=== PATIENT | male | born 1940 | race Caucasian/White ===

== ENCOUNTER 2019-07-09 12:45 | Inpatient (IN) ==
[2019-07-09 13:31] LABS: BASO# 0.02 X1000 (0.0-0.2); BASO% 0.2 % (0.0-0.8); EOS# 0.66 X1000 (0.0-0.7); EOS% 7.3 % (0.0-10.0); HEMATOCRIT 31.8 % (42.0-52.0); IMM GRAN# 0.02 X1000 (0.0-0.04); IMM GRAN% 0.2 % (0.0-0.5); LYMPH# 1.34 X1000 (1.2-3.4); LYMPH% 14.9 % (20.5-51.1); MCH 29.3 PG (27-31); MCHC 31.4 g/dL (33-37); MCV 93.3 FL (81-99); MONO# 0.88 X1000 (0.11-0.59); MONO% 9.8 % (1.7-9.3); MPV 8.9 FL (7.4-10.4); NEUT% 67.6 % (42.2-75.2); PLT 327 X1000 (130-400); RBC 3.41 XMIL (4.7-6.1); RDW 14.5 % (11.5-14.5); WBC 9.02 X1000 (4.8-10.8)
[2019-07-09] MEDS ORDERED: ZOFRAN IM ONE (13:53)
[2019-07-09] MEDS ORDERED: MORPHINE IV ONE (13:53)
[2019-07-09] MEDS ORDERED: NS 1,000 ML IV ONE (13:54)
[2019-07-09 14:00] LABS: ALB/GLOB RATIO 1.1; ALBUMIN 3.8 g/dL (3.5-5.0); CALCIUM 9.4 mg/dL (8.8-10.2); CREATININE 1.3 mg/dL (0.7-1.2); POTASSIUM 5.4 mmol/L (3.5-5.1); TOTAL BILIRUBIN 0.35 mg/dL (0.20-1.00); TOTAL PROTEIN 7.2 g/dL (6.3-8.3)
[2019-07-09 14:02] LABS: BILIRUBIN URINE NEGATIVE (NEGATIVE); BLOOD URINE NEGATIVE (NEGATIVE); COLOR YELLOW; GLUCOSE URINE 1000 mg/dL (NEGATIVE); KETONE URINE NEGATIVE (NEGATIVE); LEUKOCYTES URINE NEGATIVE (NEGATIVE); NITRITE URINE NEGATIVE (NEGATIVE); PH URINE 5.5; PROTEIN URINE NEGATIVE (NEGATIVE); SP GRAVITY URINE 1.012; TURBIDITY URINE CLEAR (CLEAR); URINE SOURCE CLEAN CATCH; UROBILINOGEN URINE NORMAL (NORMAL)
[2019-07-09 14:03] LABS: UR EPITHELIAL CELLS <10 /HPF (<10); URINE BACTERIA NEGATIVE /HPF; URINE RBC <10 /HPF (<10); URINE WBC <10 /HPF (<10)
--- NOTE | 2019-07-09 14:32 | Diag Imaging Result Doc PS360 ---
EXAM: CT ABDOMEN/PELVIS W/O CONTRAST 07/09/2019 HISTORY: Abdominal pain TECHNIQUE: This exam was performed using automated exposure control, adjustment of mA or kV according to patient size, and/or use of iterative reconstruction technique. COMMENT: The current examination is compared to 01/31/2012. There is a calcified granuloma in the right lower lobe. There are platelike atelectatic changes present in the lung bases particularly the left lower lobe. This was not present previously. There is calcification and thickening in the tail of the pancreas which was not present at the time the previous study. There was pancreatitis on the previous examination. There is thickening of the Gerota's fascia anteriorly on the left. There are some mesenteric nodules present in the left upper quadrant which were not previously present. The enlarged portion of the pancreatic tail measures 3.3 cm in transverse dimension. The remainder the pancreas is unremarkable in appearance. There is no evidence of nephrolithiasis or hydronephrosis. There has been cholecystectomy. There are some granulomata present in the liver. No gross hepatic abnormalities are otherwise demonstrated on this noncontrast study. There is some apparent mucosal thickening in the splenic flexure of the colon with stranding in the fat surrounding the colon. This may be related to the same process seen in the pancreatic tail and anterior pararenal space. There is an apparent fluid collection posterior to the body of the stomach. This is 4.4 cm in anterior posterior dimension on image 46 and extends at least 8 cm along the lesser curvature of the stomach. There are number of nodes present in the hilus of the spleen in addition to the splenule which was previously present. The small bowel is not distended. There is no evidence of free fluid. The urinary bladder is not distended. There is diverticulosis in the sigmoid colon without evidence of diverticulitis. There is no evidence of appendicitis. There are spondylotic changes in the lumbar spine similar in appearance to the previous study. IMPRESSION: 1. Mass in the tail of the pancreas. The possibility of recurrent chronic pancreatitis cannot be excluded, however the likelihood of malignancy is suggested by the peritoneal implants and adenopathy. 2. Primary or secondary involvement of the splenic flexure of the colon. 3. Pseudocyst adjacent to the lesser curvature of the body of the stomach. Electronically signed by Del Tucker 07/09/2019 2:30 PM
--- NOTE | 2019-07-09 14:52 | PROVIDER DOCUMENTATION ---
HPI-Abdominal Pain/GI Problem - General Chief Complaint: Abdominal Pain Stated Complaint: ABD PAIN Time Seen by Provider: 07/09/19 13:15 Source: patient Allergies/Adverse Reactions: Patient Allergies Allergy/AdvReac Type Severity Reaction Status Date / Time No Known Allergies Allergy Verified 07/09/19 12:59 Home Medications: Home Medication List Medication Instructions Recorded Confirmed Last Taken Type Carvedilol 25 mg PO DAILY 07/09/19 07/09/19 Unknown History Empagliflozin [Jardiance] 10 mg PO DAILY 07/09/19 07/09/19 Unknown History Fenofibrate,Micronized 134 mg PO DAILY 07/09/19 07/09/19 Unknown History [Fenofibrate] Glimepiride 1 mg PO DAILY 07/09/19 07/09/19 Unknown History Indapamide 2.5 mg PO DAILY 07/09/19 07/09/19 Unknown History Liraglutide [Victoza] 1.8 mg PO DAILY 07/09/19 07/09/19 Unknown History Losartan Potassium 100 mg PO DAILY 07/09/19 07/09/19 Unknown History Metformin E.r. [Glucophage Xr] 500 mg PO DAILY 07/09/19 07/09/19 Unknown History PRAVAstatin [Pravachol] 40 mg PO HS 07/09/19 07/09/19 Unknown History Pioglitazone [Actos] 15 mg PO DAILY 07/09/19 07/09/19 Unknown History - History of Present Illness-ABD Nature of Presenting Problems: 79 yo M with PMH of HTN, DM, HLD, Diverticulosis, presents c/o 2 days of worsening generalized abdominal pain, patient was seen at his PCP's office on Tuesday and treated for GERD/gastritis w/ PPI. Abdominal Pain Onset Location: reports: LLQ, epigastric, periumbilical Pain Radiation: reports: no radiation Quality of Pain: reports: cramping, dull Severity in ED: reports: moderate Onset/Duration: reports: gradual Timing: reports: still present Activities at Onset: reports: light activity Exposure to sick contacts?: No Modifying Factors: improves with: nothing Associated Symptoms: reports: diarrhea (Watery), nausea. denies: vomiting Last BM: other (3 diarrheal episodes today) Dark Stools Present?: reports: none noticed Rectal Bleeding: reports: none # of Diarrhea Episodes: 3 Rectal Pain: reports: none # of Vomiting Episodes: 0 Similar Symptoms Previously?: Yes (H/o diverticulosis w/ diverticulitis ) Review of Systems - Adult - REVIEW OF SYSTEMS - ADULT Constitutional: reports: no symptoms reported. denies: chills, fever Eyes: reports: no symptoms reported Ears, Nose, Mouth & Throat: reports: no symptoms reported Cardiovascular: reports: no symptoms reported Respiratory: reports: no symptoms reported Gastrointestinal: reports: see HPI, abdominal pain, diarrhea, nausea. denies: v omiting Genitourinary: reports: no symptoms reported Musculoskeletal: reports: no symptoms reported Integumentary: reports: no symptoms reported Neurological: reports: no symptoms reported Psychiatric: reports: no symptoms reported Endocrine: reports: no symptoms reported Hematologic/Lymphatic: reports: no symptoms reported Allergic/Immunologic: reports: no symptoms reported All Other Systems: Reviewed and Negative Past History - Adult - PAST MEDICAL HISTORY-ADULT Review of Records: reports: Old Records Reviewed, Nursing Assessment Review, Medications Reviewed, Social history reviewed & non-contributory. Cardiovascular: reports: HTN, hyperlipidemia Diabetes Type: Type 2 - PRIOR SURGERIES/PROCEDURES Surgical/Procedure History: reports: cholecystectomy - FAMILY HISTORY Family History: reviewed, not pertinent - SOCIAL HISTORY Smoking: denies Substance Use: none/never Alcohol Use Frequency: never Living Situation: family Physical Exam-General - PHYSICAL EXAM-ADULT Initial Vital Signs Reviewed: Yes (Repeat RR 15 rpm, BP 122/80) - CONSTITUTIONAL General Appearance: appears well, alert, no apparent distress - EYES Eyes: PERRL/EOMI, pink conjunctivae - HEAD, EARS, NOSE, MOUTH & THROAT HENMT: normocephalic/atraumatic, normal ENT inspection - NECK Neck: non-tender, full range of motion, supple - RESPIRATORY Respiratory: chest non-tender, lungs clear, normal breath sounds - CARDIOVASCULAR Cardiovascular: normal peripheral pulses, regular rate, rhythm, no edema - GASTROINTESTINAL (ABDOMEN) Abdominal Exam: normal bowel sounds, soft, no organomegaly, no pulsatile mass, guarding, tenderness (Periumbilical, LUQ and LLQ). negative: distended, rigid, rebound, hernia - LYMPHATIC Lymphatic: no adenopathy - MUSCULOSKELETAL Back Exam: normal inspection, no CVA tenderness Extremity: non-tender - SKIN Integumentary: normal color - NEUROLOGIC Neurologic: grossly normal - PSYCHIATRIC Psych/Mental Status: normal mood/affect Progress - PLAN OF CARE/RESULTS Progress/Plan/Lab Results: Vital Signs - 8 hr 07/09/19 12:52 Temperature 98.1 F Pulse Rate 84 Respiratory Rate 18 Blood Pressure 120/51 O2 Sat by Pulse Oximetry 99 Laboratory Results - last 24 hr 07/09/19 07/09/19 07/09/19 13:11 13:11 13:11 WBC 9.02 RBC 3.41 L Hgb 10.0 L Hct 31.8 L MCV 93.3 MCH 29.3 MCHC 31.4 L RDW Std Deviation 14.5 Plt Count 327 MPV 8.9 Immature Gran % (Auto) 0.2 Neut % (Auto) 67.6 Lymph % (Auto) 14.9 L [place] % (Auto) 9.8 H Eos % (Auto) 7.3 Baso % (Auto) 0.2 Immature Gran # (Auto) 0.02 Neut # (Auto) 6.10 Lymph # (Auto) 1.34 [place] # (Auto) 0.88 H Eos # (Auto) 0.66 Baso # (Auto) 0.02 Sodium 133 L Potassium 5.4 H Chloride 98 Carbon Dioxide 22 L Anion Gap 13 BUN 34 H Creatinine 1.3 H Estimated GFR/1.73 m2 53 BUN/Creatinine Ratio 26 Glucose 90 Calculated Osmolality 274 Calcium 9.4 Total Bilirubin 0.35 AST 22 ALT 15 Alkaline Phosphatase 57 Total Protein 7.2 Albumin 3.8 Globulin 3.4 Albumin/Globulin Ratio 1.1 Amylase 195 Lipase 430 H Urine Source Urine Color Urine Turbidity Urine pH Ur Specific [place] Urine Protein Ur Glucose (Stick) Ur Ketones (Stick) Urine Blood Urine Nitrite Urine Bilirubin Urobilinogen Dipstick Urine Leukocytes Urine WBC (Auto) Urine RBC (Auto) U Epithel Cells (Auto) Urine Bacteria (Auto) 07/09/19 13:49 WBC RBC Hgb Hct MCV MCH MCHC RDW Std Deviation Plt Count MPV Immature Gran % (Auto) Neut % (Auto) Lymph % (Auto) [place] % (Auto) Eos % (Auto) Baso % (Auto) Immature Gran # (Auto) Neut # (Auto) Lymph # (Auto) [place] # (Auto) Eos # (Auto) Baso # (Auto) Sodium Potassium Chloride Carbon Dioxide Anion Gap BUN Creatinine Estimated GFR/1.73 m2 BUN/Creatinine Ratio Glucose Calculated Osmolality Calcium Total Bilirubin AST ALT Alkaline Phosphatase Total Protein Albumin Globulin Albumin/Globulin Ratio Amylase Lipase Urine Source CLEAN CATCH Urine Color YELLOW Urine Turbidity CLEAR Urine pH 5.5 Ur Specific [place] 1.012 Urine Protein NEGATIVE Ur Glucose (Stick) 1000 A Ur Ketones (Stick) NEGATIVE Urine Blood NEGATIVE Urine Nitrite NEGATIVE Urine Bilirubin NEGATIVE Urobilinogen Dipstick NORMAL Urine Leukocytes NEGATIVE Urine WBC (Auto) <10 Urine RBC (Auto) <10 U Epithel Cells (Auto) <10 Urine Bacteria (Auto) NEGATIVE Orders Category Date Time Status Saline Loc DIRECTED Care 07/09/19 12:57 Active NPO Diet 07/09/19 12:[address] ABDOMEN/PELVIS W/O CONTRAST [CT] Stat Exams 07/09/19 13:53 Completed AMYLASE [CHEM] Stat Lab 07/09/19 13:11 Completed CBC WITH ELECTRONIC DIFF [HEME] Stat Lab 07/09/19 13:11 Completed COMPREHENSIVE METABOLIC PANEL [CHEM] Stat Lab 07/09/19 13:11 Completed LIPASE [CHEM] Stat Lab 07/09/19 13:11 Completed URINALYSIS W/POSS RFLX CULT [URINALYSIS] Stat Lab 07/09/19 13:49 Completed 0.9% Sodium Chloride Inj [Ns] 1,000 ml Med 07/09/19 13:54 Active IV 999 mls/hr Morphine Med 07/09/19 13:53 Discontinued 4 mg IV NOW ONE Ondansetron [Zofran] Med 07/09/19 13:53 Discontinued 4 mg IM NOW ONE Result Diagrams: 07/09/19 13:11 07/09/19 13:11 - CT/MRI 1 CT Study: Abdomen, Pelvis Impression: See EMR Report (EXAM: CT ABDOMEN/PELVIS W/O CONTRAST 07/09/2019 HISTORY: Abdominal pain TECHNIQUE: This exam was performed using automated exposure control, adjustment of mA or kV according to patient size, and/or use of iterative reconstruction technique. COMMENT: The current examination is compared to 01/31/2012. There is a calcified granuloma in the right lower lobe. There are platelike atelectatic changes present in the lung bases particularly the left lower lobe. This was not present previously. There is calcification and thickening in the tail of the pancreas which was not present at the time the previous study. There was pancreatitis on the previous examination. There is thickening of the Gerota's fascia anteriorly on the left. There are some mesenteric nodules present in the left upper quadrant which were not previously present. The enlarged portion of the pancreatic tail measures 3.3 cm in transverse dimension. The remainder the pancreas is unremarkable in appearance. There is no evidence of nephrolithiasis or hydronephrosis. There has been cholecystectomy. There are some granulomata present in the liver. No gross hepatic abnormalities are otherwise demonstrated on this noncontrast study. There is some apparent mucosal thickening in the splenic flexure of the colon with stranding in the fat surrounding the colon. This may be related to the same process seen in the pancreatic tail and anterior pararenal space. There is an apparent fluid collection posterior to the body of the stomach. This is 4.4 cm in anterior posterior dimension on image 46 and extends at least 8 cm along the lesser curvature of the stomach. There are number of nodes present in the hilus of the spleen in addition to the splenule which was previously present. The small bowel is not distended. There is no evidence of free fluid. The urinary bladder is not distended. There is diverticulosis in the sigmoid colon without evidence of diverticulitis. There is no evidence of appendicitis. There are spondylotic changes in the lumbar spine similar in appearance to the previous study. IMPRESSION: 1. Mass in the tail of the pancreas. The possibility of recurrent chronic pancreatitis cannot be excluded, however the likelihood of malignancy is suggested by the peritoneal implants and adenopathy. 2. Primary or secondary involvement of the splenic flexure of the colon. 3. Pseudocyst adjacent to the lesser curvature of the body of the stomach. Electronically signed by Del Tucker 07/09/2019 2:30 PM) - CONSULTS/PCP/HOSPITALIST Notification #1 *Consult/PCP/Hospitalist*: MARY ANNE Spears) Time Discussed: 15:26 Reason/Comments: Admission Consult Disposition: Admit (Inpatient management of chronic recurrent pancreatitis, w/up pancreatic mass/pseudocyst/possible GI malignancy) Departure - Departure Date of Disposition Decision: 07/09/19 Time of Disposition Decision: 15:11 DIAGNOSIS: Pancreatic mass, Pseudocyst of pancreas, Mesenteric lymphadenopathy, Normocytic anemia, Hyperkalemia Pancreatitis Qualifiers: Chronicity: chronic Pancreatitis type: unspecified pancreatitis type Qualified Code(s): K86.1 - Other chronic pancreatitis Kidney failure Qualifiers: Renal failure chronicity: unspecified chronicity Qualified Code(s): N19 - Unspecified kidney failure Disposition: ADMITTED INPATIENT 09 Certified Medical Emergency: Emergent Condition: Stable - Critical Care Note This patient required my direct & personal management of CC.: No Attestation - Physician/ SHIRA Attestation Patient care was provided by Advanced Practice Provider:: No The physician spent face to face time with patient:: Yes Advanced Practice Provider documentation review:: Supervising physician onsite and consulted in the evaluation and care of this patient. The physician did have a face to face encounter with the patient.
[2019-07-09] MEDS ORDERED: ZOFRAN IV PRN (16:34)
--- NOTE | 2019-07-09 18:10 | HISTORY AND PHYSICAL ---
CHIEF COMPLAINT: Abdominal pain. HISTORY OF PRESENT ILLNESS: This is a very pleasant 79-year-old gentleman with a history of hypertension, diabetes mellitus, and diverticulosis. He presents to the emergency room complaining of 4 to 5 days of increasing generalized abdominal pain. He describes this as a cramping dull type pain that is primarily in the left lower quadrant and suprapubic area, although he has had some umbilical to epigastric pain with no alleviating or exacerbating factors. He has developed diarrhea today. He denies any known sick contacts or any recent travel. PAST MEDICAL HISTORY: 1. Diabetes mellitus. 2. Hyperlipidemia. 3. Hypertension. 4. Diverticulosis. PAST SURGICAL HISTORY: Cholecystectomy. SOCIAL HISTORY: He is , lives with his . He denies any alcohol, tobacco, or illicit drug use. FAMILY HISTORY: Positive for hypertension and diabetes mellitus and high cholesterol. ALLERGIES: No known drug allergies. HOME MEDICATIONS: A list will be obtained by the nursing staff, and once verified, we will review and restart as appropriate. REVIEW OF SYSTEMS: Discussed with patient with pertinent positives stated in the HPI. He denied any syncope or dizziness, any chest pain or palpitations, any shortness of breath, cough, fever, chills, night sweats, black or bloody vomitus or stools, any hematuria, dysuria, frequency, urgency. PHYSICAL EXAMINATION: GENERAL: This is an 79-year-old gentleman, who is lying on the stretcher in the emergency room, in no distress. VITAL SIGNS: Blood pressure is 150/60 with a heart rate of 73, respirations are 18, temperature is 98.1 degrees oral with room air saturations 98% to 99%. EYES: Pupils equal, round, react to light. EOMs are intact. Sclerae anicteric. HEENT: Head is normocephalic, atraumatic. Mucous membranes are moist. NECK: Supple with trachea midline. CARDIOVASCULAR: Regular rate and rhythm. S1 and S2 appreciated. He has no lower extremity edema. Calves are nontender bilateral with peripheral pulses palpable x4 extremities. PULMONARY: Breath sounds are clear with no increased work of breathing noted. Chest rises and falls symmetric with respiration. Chest wall is nontender to palpation. GASTROINTESTINAL: Abdomen is soft, nondistended. Tender to suprapubic, left lower quadrant, and epigastric areas with bowel sounds in all 4 quadrants. NEUROLOGIC: He is alert and oriented x3. SKIN: Warm and dry. DIAGNOSTIC STUDIES: WBC is 9 with hemoglobin 10, hematocrit 31.8, platelets of 327,000. Sodium 133, potassium 5.4, BUN 34, creatinine 1.3 with a glucose of 90. Lipase is 430. Urinalysis is essentially negative with the exception of glucose of 1000. CT of the abdomen and pelvis reveals mass in the tail of the pancreas with the possibility that recurrent chronic pancreatitis cannot be excluded. However, the likelihood of malignancy is suggested by the peritoneal implants and adenopathy, primary or secondary involvement of the splenic flexure of the colon with pseudocyst adjacent to the lesser curvature of the body of the stomach. ASSESSMENT AND PLAN: 1. Pancreatitis. 2. Pancreatic mass. 3. Pseudocyst of the pancreas. 4. Mesenteric lymphadenopathy. 5. Diabetes mellitus. 6. Hypertension. 7. Hyperlipidemia. 8. Anemia. 9. Hypokalemia. 10. Acute kidney injury. 11. Diarrhea. 12. Abdominal pain. PLAN: The patient will be admitted to the hospital. He will be placed on telemetry. We will continue with IV hydration. n.p.o. stool studies. Check a CEA and CA19-9 CBC, CMP, and lipase in the morning. stat pro-time with INR, PTT. Patterned blood glucose with sliding scale insulin. DVT prophylaxis, we will use SCDs and GI prophylaxis, Protonix. Consult Dr Guidry Plan was discussed with Dr. Patton. Further treatments pending hospital course. Dictated by MARY ANNE Singh for Jose Luis Cifuentes MD Addendum: Patient seen and examined by myself. Agree with MARY ANNE note. It reflects my assessment and plan. Patient is being admitted to hospital for work up for pancreatic mass. Will consult GI and Oncology and will check CT of thorax for staging. Will monitor patient closely. Will provide IV fluids and pain meds. cc: MARY ANNE Singh MD [facility]
[2019-07-09] MEDS: NS 1,000 ML IV SCH (18:54)
[2019-07-09] MEDS: SODIUM CHLORIDE 0.9% INJ SCH (18:54)
[2019-07-09] MEDS: PROTONIX IV SCH (18:54)
[2019-07-09 18:59] LABS: INR 1.37; PROTIME 17.1 Seconds (11.0-16.0)
[2019-07-09 19:00] LABS: PTT 38.5 Seconds (22.3-41.8)
[2019-07-10] MEDS: HUMALOG SUBQ SCH ×5 (05:00→20:44)
[2019-07-10] MEDS ORDERED: D50W SYRINGE IV PRN (05:11)
[2019-07-10 05:16] LABS: BASO# 0.02 X1000 (0.0-0.2); BASO% 0.3 % (0.0-0.8); EOS# 0.46 X1000 (0.0-0.7); EOS% 5.9 % (0.0-10.0); HEMATOCRIT 28.5 % (42.0-52.0); HEMOGLOBIN 8.8 g/dL (14.0-18.0); LYMPH# 0.98 X1000 (1.2-3.4); LYMPH% 12.5 % (20.5-51.1); MCH 28.8 PG (27-31); MCHC 30.9 g/dL (33-37); MCV 93.1 FL (81-99); MONO# 0.98 X1000 (0.11-0.59); MONO% 12.5 % (1.7-9.3); MPV 8.6 FL (7.4-10.4); NEUT# 5.41 X1000 (1.4-6.5); NEUT% 68.8 % (42.2-75.2); PLT 315 X1000 (130-400); RBC 3.06 XMIL (4.7-6.1); RDW 14.6 % (11.5-14.5); WBC 7.85 X1000 (4.8-10.8)
[2019-07-10 05:33] LABS: ALBUMIN 3.3 g/dL (3.5-5.0); CALCIUM 8.7 mg/dL (8.8-10.2); CREATININE 1.2 mg/dL (0.7-1.2); POTASSIUM 4.8 mmol/L (3.5-5.1); TOTAL BILIRUBIN 0.36 mg/dL (0.20-1.00); TOTAL PROTEIN 6.6 g/dL (6.3-8.3)
[2019-07-10] MEDS: NS 1,000 ML IV SCH (06:28)
[2019-07-10] MEDS: MORPHINE IV PRN ×2 (08:46→16:28)
[2019-07-10] MEDS: COREG PO SCH (11:43)
--- NOTE | 2019-07-10 12:37 | PROGRESS NOTE ---
DATE: 07/10/2019 SUBJECTIVE: The patient has no major complaints. He seems to be doing better, like he is hungry, pain is better. Of course, he has been n.p.o. OBJECTIVE DATA: Vital signs: Blood pressure is 130/50, heart rate of 86, respiratory rate of 18, temperature 98.9 degrees, saturating 97% on room air. Cardiovascular: Regular rate and rhythm. Pulmonary: Bilateral breath sounds. Clear to auscultation. GI: Soft, nontender, nondistended. Bowel sounds are positive. LABORATORY DATA: White count 7, hemoglobin and hematocrit 8 and 28, platelets 315,000. Basic was normal. Creatinine of 1.2. Lipase is down to 187. PROBLEM LIST: 1. Acute pancreatitis with unclear etiology, and there is a questionable mass versus pseudocyst versus splenule. We are going to continue to monitor. I have discussed the case with Dr. Hussein, who states that it may be a little too early to pursue biopsy, and that we would monitor him for a couple days, and then re-image, and then decide about doing a biopsy at that time, if the mass has not changed or if the inflammation has down a bit. I will relay the information to Dr. Guidry. I do think he needs a Gastroenterology consultation, but we do not have that available. I am going to try to see if Dr. Whitaker will see him because he sees the patient's and daughter, just to get an opinion. 2. Type 2 diabetes. Will monitor blood sugars, and follow closely. 3. Hypertension. Will continue to monitor. 4. Acute kidney injury. Continue hydration. Follow. 5. Disposition. Pending clinical status, but he is going to be here another couple of days. cc: Victor Hugo Solano MD
[2019-07-10 13:19] LABS: AGAP 11; ALB/GLOB RATIO 0.9; ALBUMIN 3.2 g/dL (3.5-5.0); ALKALINE PHOSPHATASE 45 U/L (32-122); BUN 20 mg/dL (8-22); CALCIUM 8.6 mg/dL (8.8-10.2); CHLORIDE 104 mmol/L (98-107); COSMO 279; CREATININE 1.1 mg/dL (0.7-1.2); ESTIMATED GFR > 60; GLUCOSE 148 mg/dL (70-104); GOT 23 U/L (10-34); GPT 12 U/L (10-44); SODIUM 137 mmol/L (136-145); TCO2 22 mmol/L (25-35); TOTAL BILIRUBIN 0.36 mg/dL (0.20-1.00); TOTAL PROTEIN 6.7 g/dL (6.3-8.3)
[2019-07-10] MEDS: LR 1,000 ML IV SCH (16:25)
[2019-07-10] MEDS: TYLENOL PO PRN (19:08)
[2019-07-10] MEDS: PROTONIX IV SCH (19:09)
[2019-07-10] MEDS: ZOSYN 3.375 GM in NS 50 ML IV SCH (20:45)
--- NOTE | 2019-07-11 00:42 | HEMO/ONC CONSULTATION ---
DATE: 07/10/2019 REQUESTING PHYSICIAN: Dr. Solano. REASON FOR CONSULTATION: Pancreatic tail mass with peritoneal/omental metastases. CHIEF COMPLAINT/HISTORY OF PRESENT ILLNESS: Patient is an 79-year-old male who presented to the ER bed abdominal pain mainly in the lower abdomen. He reports he had similar pain when he was diagnosed with pancreatitis in 2011. A CT scan was performed which revealed findings concerning for a mass in the tail of the pancreas, chronic pancreatitis, peritoneal implants and adenopathy with concern for a primary or secondary involvement of the splenic flexure of the colon. I have been requested to consult on him. I take care of his daughter in the clinic as well. PAST MEDICAL HISTORY: Diabetes, hypertension, hyperlipidemia, diverticulosis. PAST SURGICAL HISTORY: Cholecystectomy. SOCIAL HISTORY: Patient is and lives with his . He denies smoking, alcohol, or substance abuse. FAMILY HISTORY: Positive for diabetes and hypertension. ALLERGIES: No known drug allergies. CURRENT MEDICATIONS: Coreg, insulin, Protonix, Zosyn. REVIEW OF SYSTEMS: Patient denies blood per rectum or melena. He denies anorexia or weight loss. All other review of systems are negative. PHYSICAL EXAMINATION: General: Patient is in no acute distress. Vital Signs: Temperature 99.4 degrees, pulse 91, blood pressure 141/51. HEENT: EOMI. PERRLA. Anicteric. Mucous membranes are moist. Neck: Supple without JVD, thyromegaly, or nodules. Lymphatic: Node survey is negative. Cardiac: Regular rate and rhythm. Normal S1, S2. Chest: Clear to auscultation. Abdomen: Protuberant, soft, nontender, without hepatosplenomegaly. No masses. Extremities: No cyanosis, clubbing, or edema. Neurological: Alert and oriented x3. No focal motor deficits. LABORATORY DATA: White count 7.8, hemoglobin 8.8, hematocrit 28, MCV 93, platelets 315,000. BUN 20, creatinine 1.1. LFTs are normal. CEA 1.1. CA-19-[address] abdomen and pelvis: Mass in the tail of the pancreas, possibility of recurrent pancreatitis cannot be excluded. Peritoneal implants and adenopathy suggestive of malignancy. Primary or secondary involvement of the splenic flexure of the colon. ASSESSMENT AND PLAN: 1. Questionable mass in the tail of the pancreas: We will obtain CA-19-9. Await results. We will discuss with Dr. Solano. Plan further management accordingly. 2. Peritoneal implants and adenopathy: This makes it concerning for a malignancy. He may require a PET scan and tissue diagnosis. 3. Primary or secondary involvement of the splenic flexure of the colon: Will try to review his last colonoscopy results. He may require a repeat colonoscopy, depending on that. 4. History of prior pancreatitis and findings of chronic pancreatitis on the scan. 5. Fever: On antibiotics. cc: Lalo Guidry MD
[2019-07-11] MEDS: ZOSYN 3.375 GM in NS 50 ML IV SCH ×4 (02:16→20:10)
[2019-07-11] MEDS: TYLENOL PO PRN (02:17)
[2019-07-11 05:21] LABS: HEMATOCRIT 28.1 % (42.0-52.0); HEMOGLOBIN 8.5 g/dL (14.0-18.0); MCH 28.6 PG (27-31); MCHC 30.2 g/dL (33-37); MCV 94.6 FL (81-99); MPV 8.8 FL (7.4-10.4); RBC 2.97 XMIL (4.7-6.1); RDW 14.8 % (11.5-14.5); WBC 9.93 X1000 (4.8-10.8)
[2019-07-11] MEDS: HUMALOG SUBQ SCH ×4 (06:29→20:11)
[2019-07-11] MEDS: LR 1,000 ML IV SCH ×3 (06:49→20:10)
[2019-07-11] MEDS: COREG PO SCH (09:26)
[2019-07-11] MEDS: PROTONIX IV SCH (17:42)
[2019-07-11 17:54] LABS: AGAP 17; ALB/GLOB RATIO 0.8; ALBUMIN 2.8 g/dL (3.5-5.0); ALKALINE PHOSPHATASE 49 U/L (32-122); BUN 14 mg/dL (8-22); CALCIUM 8.7 mg/dL (8.8-10.2); CHLORIDE 101 mmol/L (98-107); COSMO 278; ESTIMATED GFR > 60; GLUCOSE 130 mg/dL (70-104); GOT 25 U/L (10-34); GPT 12 U/L (10-44); POTASSIUM 4.6 mmol/L (3.5-5.1); SODIUM 138 mmol/L (136-145); TCO2 20 mmol/L (25-35); TOTAL BILIRUBIN 0.43 mg/dL (0.20-1.00); TOTAL PROTEIN 6.3 g/dL (6.3-8.3)
--- NOTE | 2019-07-11 18:33 | PROGRESS NOTE ---
DATE: 07/11/2019 SUBJECTIVE: The patient has no major complaints. His pain is better. He had a little bit of pain in his left lower quadrant. OBJECTIVE: Vital Signs: Blood pressure is 133/43, heart rate 81, respiratory 16, temperature 99.2 degrees. Cardiovascular: Regular rate and rhythm. Pulmonary: Bilateral breath sounds. Clear to auscultation. GI: Soft, nontender, nondistended. Bowel sounds are positive. LABORATORY DATA: White count is 9.9, hemoglobin and hematocrit 8 and 28, platelets 306,000. Sugar is 140. Lipase is down to 114. PROBLEM LIST: 1. Acute pancreatitis. We are going to continue treatment. Diet has been advanced. Continue IV fluids and pain control. 2. Possible pancreatic mass. We will repeat CT tomorrow and re-evaluate for possible mass and need for biopsy at the discretion of the consultants. 3. Possible peritoneal implants. He may need a repeat colonoscopy. We are going to see how things are looking. DISPOSITION: Pending imaging findings. We will continue to follow. cc: Victor Hugo Solano MD
--- NOTE | 2019-07-11 20:28 | GASTROENTEROLOGY CONSULTATION ---
DATE: 07/11/2019 REASON FOR CONSULTATION: Pancreatitis, possible pancreatic mass. HISTORY OF PRESENT ILLNESS: This is an 79-year-old male who presented to the emergency room with abdominal pain. We have not seen the patient in the past. Patient states he has seen Dr. Whitaker in the past but it has been a long time ago. He thinks he may have had a colonoscopy around 2011. He states he also had his gallbladder removed around that time. Onset of present illness over the last 4 to 5 days. The patient has reported progressing abdominal pain. He has had recent loss of appetite and reports episodes of nausea and increased reflux and abdominal pain. He reports over the last 2 weeks he has lost about 10 to 15 pain. He has had a poor appetite. He has also reported some recent diarrhea. Patient has had evaluation since admission that showed abnormal CT scan showing mass in the tail of the pancreas, possibility of recurrent chronic pancreatitis or possible malignancy. Also findings of primary or secondary involvement of the splenic flexure of the colon along with possible pseudocyst adjacent to the lesser curvature of the body of the stomach. PAST MEDICAL HISTORY: Diabetes, hyperlipidemia, hypertension. History of diverticulosis with last reported colonoscopy around [address] Whitaker. PAST SURGICAL HISTORY: Cholecystectomy. ALLERGIES: No known drug allergies. MEDICATIONS: Carvedilol 25 mg daily. Jardiance units 10 mg daily. Fenofibrate 130 mg daily. Glimepiride 1 mg daily. Indapamide 2.5 mg daily. Victoza 1.8 mg daily. Losartan 100 mg daily. Metformin 500 mg daily. Actos 15 mg daily. Pravachol 40 mg every night. SOCIAL HISTORY: He denies tobacco or alcohol use. 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 He is . He has 4 biological children. He has 1 child with his current who has Crohn disease and follows with Dr. Whitaker. REVIEW OF SYSTEMS: Per history of present illness. Patient has complained of recent lower abdominal pain and left side pain. Appetite loss, nausea, weight loss and diarrhea. He has had a fever. Reports last colonoscopy in 2011. OBJECTIVE: Vital Signs: Temperature 99.2 degrees, pulse 81, respirations 16, blood pressure 133/43. General: Patient is awake and alert. In no acute distress. HEENT: Normocephalic, atraumatic. Pupils equal, round, reactive to light. Sclerae nonicteric. Respiratory: Lung sounds essentially clear. Cardiovascular: Regular rate and rhythm. Abdomen: Obese. Soft. He does have some tenderness to the left quadrant with palpation. Extremities: No lower extremity edema noted. Neurological: Cranial nerves 2-12 grossly intact. Patient is awake, alert, oriented to person, place, and time. DIAGNOSTIC RESULTS: LABORATORY: Hematology: WBC 9.93, hemoglobin 8.5, hematocrit 28.1, MCV 94.6, platelets 306,000. Coagulation: Pro time 17.1, INR 1.37, PTT 38.5. Chemistry: Sodium 137, potassium 5.0, chloride 104, CO2 of 22, BUN 20, creatinine 1.1, glucose 148 calcium 8.6, total bilirubin 0.36 AST 23, ALT 12, alkaline phosphatase 45. ASSESSMENT AND PLAN: 1. Abdominal pain. 2. Abnormal CT scan with questionable mass in the pancreas. CEA was normal at 1.1. Awaiting on CA-19-9. 3. Possible pancreatitis. His amylase and lipase have improved. Lipase 114 today. 4. Fever. Continue current antibiotics. 5. Abnormal CT scan showing mass in the tail of the pancreas. Possible recurrent pancreatitis versus malignancy, questionable primary, secondary involvement in the splenic flexure of the colon and possible pseudocyst in the left lesser curvature of the body of the stomach. I believe there are plans to repeat his CT scan for further evaluation and possibility of biopsy of the mass. Dr. Guidry has been consulted and seen the patient. Continue to follow his recommendations. Will wait on CA-19-[address] scan result. Further plans to be made as needed. I have discussed this case with Dr. Upton. Thank you for this consultation. Dictated by MARY ANNE Aggarwal for Khoa Upton MD cc: MARY ANNE Peacock MD
[2019-07-12] MEDS: ZOSYN 3.375 GM in NS 50 ML IV SCH ×4 (02:33→19:57)
[2019-07-12 05:06] LABS: BASO# 0.02 X1000 (0.0-0.2); BASO% 0.2 % (0.0-0.8); EOS% 1.9 % (0.0-10.0); HEMOGLOBIN 8.7 g/dL (14.0-18.0); IMM GRAN# 0.02 X1000 (0.0-0.04); IMM GRAN% 0.2 % (0.0-0.5); LYMPH# 0.86 X1000 (1.2-3.4); LYMPH% 8.1 % (20.5-51.1); MCH 28.1 PG (27-31); MCV 93.5 FL (81-99); MONO# 1.19 X1000 (0.11-0.59); MONO% 11.2 % (1.7-9.3); MPV 8.8 FL (7.4-10.4); NEUT# 8.38 X1000 (1.4-6.5); NEUT% 78.4 % (42.2-75.2); PLT 341 X1000 (130-400); RDW 14.4 % (11.5-14.5); WBC 10.67 X1000 (4.8-10.8)
[2019-07-12] MEDS: HUMALOG SUBQ SCH ×4 (06:22→20:07)
[2019-07-12] MEDS: LR 1,000 ML IV SCH ×2 (07:17→17:36)
[2019-07-12] MEDS: COREG PO SCH (10:17)
--- NOTE | 2019-07-12 13:27 | Diag Imaging Result Doc PS360 ---
EXAM: CT ABD/PELVIS W/IV CONT ONLY 07/12/2019 HISTORY: pancreatic mass TECHNIQUE: This exam was performed using automated exposure control, adjustment of mA or kV according to patient size, and/or use of iterative reconstruction technique. COMMENT: The current study is compared with the previous examination of 07/09/2019. There are bilateral pleural effusions which were not previously present. There is dependent atelectasis in both lower lobes. There is apparent necrosis in the pancreatic tail with what appears to be a fluid collection on image 35 of the arterial phase measuring 2.5 cm in diameter. There are additional areas which are less well circumscribed which may be indicate early liquefaction and necrosis in the tail of the pancreas. There is fluid, edema in the anterior pararenal space along the Gerota's fascia. There continues to be fluid collections adjacent to the stomach particularly near the lesser curvature of the body of the stomach which are likely early pseudocysts. There is a node on image 51 measuring over a centimeter in size which has not changed significantly since the previous study. The soft tissue nodules which were present in the anterior pararenal space adjacent to the splenic flexure of the colon at the time the previous study are again noted. The abnormality which was closer to Gerota's fascia is less dense and slightly larger now measuring 2.4 cm in transverse dimension versus 12 mm previously. There is more fluid in the paracolic gutters. The kidneys are without evidence of hydronephrosis or mass. The liver is unremarkable. The adrenal glands are not enlarged. There is no evidence of bowel obstruction. Pelvis: There are diverticula in the sigmoid colon without evidence of active diverticulitis. The urinary bladder is not distended. The prostate gland is enlarged measuring over 6.1 cm transversely. This was also the case previously. There are severe degenerative disc and facet changes in the lumbar spine. The appearance of the regional skeleton has not changed significantly. IMPRESSION: New pleural effusions and basilar atelectasis. Worsened ascites. Given the changing appearance of the left anterior pararenal space, and the benefit of intravenous contrast, the findings are more consistent with developing hemorrhagic pancreatitis with necrosis of the pancreatic tail and with neoplasm. The soft tissue density nodules which were previously demonstrated near the splenic flexure of the colon may in fact represent hematoma formation. There are developing fluid collections which may become abscesses or pseudocysts in this area. There is a similar fluid collection along the lesser curvature of the stomach and also one adjacent to the fundus of the stomach. Electronically signed by Del Tucker 07/12/2019 1:25 PM
[2019-07-12] MEDS: PROTONIX IV SCH (17:35)
[2019-07-12] MEDS: SODIUM CHLORIDE 0.9% INJ SCH (17:35)
[2019-07-12] MEDS: TYLENOL PO PRN (18:43)
--- NOTE | 2019-07-12 18:49 | PROGRESS NOTE ---
DATE: 07/12/2019 SUBJECTIVE: The patient reports that abdominal pain is under control. He denies any black stools or vomiting blood. OBJECTIVE: Vital Signs: Temperature 96.6 degrees, heart rate 75, respiratory 17, blood pressure 125/41, O2 saturation 97% on room air. General Examination: This is a chronically ill-appearing 79-year-old male, lying in bed, in no acute distress. Cardiovascular: S1, S2 heard. No murmurs, gallops, or rubs. Regular rate and rhythm. Respiratory: Clear bilaterally to auscultation. No work of breathing or use of accessory muscles. Abdomen: Soft. A little bit tender to palpation in the epigastric area, but bowel sounds present. No organomegaly. No signs of peritoneal irritation. Extremities: No clubbing, cyanosis, or edema. Peripheral pulses present in both legs. Neurological: The patient is alert oriented x3. Moves 4 extremities. LABORATORY DATA: White cell count 10.67, hemoglobin 8.7, hematocrit 29.0, platelets 341,000. No BMP from today. ASSESSMENT AND PLAN: 1. Acute pancreatitis. Actually, the CT all the abdomen with contrast showed worsening ascites and also findings consistent with developing hemorrhagic pancreatitis with necrosis of the pancreatic tail with neoplasm. At this point, we are going to continue with IV pain medications. At this point, we will follow recommendations from Gastroenterology, Dr. Upton. Oncology also has been consulted. At this point, according to gastroenterology, the patient does not require any procedure yet. We will see what both specialists has got to say. 2. Possible peritoneal implants. We will see what Gastroenterology has to say. We need to do any colonoscopy or not. We will see. DISPOSITION: I think, if tomorrow his hemoglobin is stable and no further plans for procedure is noted for Gastroenterology, then, we will discharge this patient tomorrow. cc: Jose Luis Cifuentes MD
[2019-07-13] MEDS: ZOSYN 3.375 GM in NS 50 ML IV SCH ×3 (01:04→13:50)
[2019-07-13] MEDS: LR 1,000 ML IV SCH (05:11)
[2019-07-13 05:21] LABS: BASO# 0.02 X1000 (0.0-0.2); BASO% 0.2 % (0.0-0.8); EOS# 0.17 X1000 (0.0-0.7); EOS% 1.8 % (0.0-10.0); HEMATOCRIT 26.5 % (42.0-52.0); HEMOGLOBIN 8.2 g/dL (14.0-18.0); IMM GRAN# 0.03 X1000 (0.0-0.04); IMM GRAN% 0.3 % (0.0-0.5); LYMPH# 0.93 X1000 (1.2-3.4); LYMPH% 10.1 % (20.5-51.1); MCH 28.7 PG (27-31); MCHC 30.9 g/dL (33-37); MCV 92.7 FL (81-99); MONO# 0.98 X1000 (0.11-0.59); MONO% 10.6 % (1.7-9.3); MPV 8.7 FL (7.4-10.4); NEUT# 7.09 X1000 (1.4-6.5); PLT 341 X1000 (130-400); RBC 2.86 XMIL (4.7-6.1); RDW 14.5 % (11.5-14.5); WBC 9.22 X1000 (4.8-10.8)
[2019-07-13 05:52] LABS: AGAP 16; ALB/GLOB RATIO 0.7; ALBUMIN 2.5 g/dL (3.5-5.0); ALKALINE PHOSPHATASE 45 U/L (32-122); BUN 14 mg/dL (8-22); CALCIUM 8.8 mg/dL (8.8-10.2); CHLORIDE 101 mmol/L (98-107); COSMO 279; CREATININE 1.1 mg/dL (0.7-1.2); ESTIMATED GFR > 60; GLUCOSE 155 mg/dL (70-104); GOT 28 U/L (10-34); GPT 15 U/L (10-44); POTASSIUM 3.8 mmol/L (3.5-5.1); SODIUM 138 mmol/L (136-145); TCO2 21 mmol/L (25-35); TOTAL BILIRUBIN 0.35 mg/dL (0.20-1.00); TOTAL PROTEIN 5.9 g/dL (6.3-8.3)
[2019-07-13] MEDS: HUMALOG SUBQ SCH ×2 (06:18→11:59)
[2019-07-13] MEDS: COREG PO SCH (08:01)
--- NOTE | 2019-07-13 10:37 | HEMO/ONC PROGRESS NOTE ---
DATE: 07/13/2019 SUBJECTIVE: Mr. Beckham is lying in bed this morning. He states that he feels rather comfortable. His is at bedside, helping him get ready for the day. The patient states his abdomen is no more distended than normal. He denies any pain. He denies any complaints. OBJECTIVE: Vital Signs: Temperature 97.7 degrees, pulse rate 73, respiratory rate 12, blood pressure 123/52, O2 saturation 96% on room air, 0/10 pain. General: This is a chronically ill- appearing male in no acute distress. Cardiovascular: Normal S1, S2. Heart rate and rhythm regular. Respiratory: Clear to auscultation. Normal respiratory effort. Abdomen: Soft and protuberant, but normal for him. Bowel sounds are present. No hepatosplenomegaly noted. Extremities: No lower extremity edema noted. Neurological: Awake, alert, oriented x3. Able to move all 4 extremities at will. LABORATORY DATA: WBC 9.22, hemoglobin 8.2, hematocrit 26.5, platelet count 341,000. ANC 7.09, creatinine 1.1. CEA 1.1. CA-19-9 21. RADIOLOGY: CT abdomen and pelvis, new pleural effusions and basilar atelectasis, worsened ascites, developing hemorrhagic pancreatitis with necrosis of the pancreatic tail and with neoplasm. ASSESSMENT AND PLAN: 1. Questionable mass in the tail of the pancreas. We will get a PET scan for the patient. We understand the patient is anxious to be discharged. We will get an outpatient PET scan and follow up with him in the office to plan further management accordingly. 2. Peritoneal implants and adenopathy. This is concerning for malignancy. We will move forward with a PET scan upon discharge. 3. Primary versus secondary involvement of the splenic flexure of the colon. We will review his colonoscopy results and he needs to follow closely with Gastroenterology. 4. History of prior pancreatitis and findings of chronic pancreatitis on the scan. Dictated by MARY ANNE Chairez for Lalo Guidry MD cc: Lalo Guidry MD [facility]
[2019-07-13 12:04] VITALS: BP 127/37
--- NOTE | 2019-07-13 17:02 | GASTROENTEROLOGY PROGRESS NOTE ---
DATE: 07/13/2019 SUBJECTIVE: The patient denies any acute complaints. He denies abdominal pain at present time. He is tolerating his diet. OBJECTIVE: Vital signs: Temperature 97.7 degrees, pulse 74, respirations 22, blood pressure 127/37. General: The patient is awake and alert, in no acute distress. LABORATORY DATA: Hematology: WBC 9.22, hemoglobin 8.2, hematocrit 26.5, MCV 92.7, platelet count 341,000. Coagulation: Pro time 17.1, INR 1.37, PTT 38.5. Chemistry: Sodium 138, potassium 3.8, chloride 101, CO2 is 21, BUN 14, creatinine 1.1. Glucose 155, total bilirubin 0.35, AST 28, ALT 15, alkaline phosphatase 45. CA19-9 was 21, CEA 1.1. DIAGNOSTIC DATA: Repeat CT scan on 07/12/2019 showed new pleural effusions and basilar atelectasis with worsening ascites. Findings were more consistent with developing hemorrhagic pancreatitis with necrosis of the pancreatic tail and with possible neoplasm. Soft tissue density nodules previously demonstrated near the splenic flexure of the colon may represent hematoma formation. There are developing fluid collections which may become abscesses or pseudocysts in this area. There is similar fluid collection along the lesser curvature of the stomach and also one adjacent to the fundus of the stomach. ASSESSMENT AND PLAN: Acute pancreatitis evolving into possible pseudocyst, doubt is an abscess due to normal WBC count. We will continue to follow. Continue current treatment. I believe he states his last colonoscopy was in 2011. Would recommend getting reports from Dr. Whitaker for further evaluation. Recommend the patient follow up with us as an outpatient. He has also been seen by Dr. Guidry, and they plan for outpatient workup including a PET scan for further evaluation. Once the patient is stable, he can be discharged to follow up as an outpatient.. I have discussed this case with Dr. Upton. Dictated by MARY ANNE Aggarwal for Khoa Upton MD cc: MARY ANNE Peacock MD [facility]
[2019-07-14] MEDS ORDERED: PROTONIX PO SCH (07:00)
--- NOTE | 2019-07-14 13:53 | DISCHARGE SUMMARY ---
ADMISSION DATE: 07/09/2019 DISCHARGE DATE: 07/13/2019 DISCHARGE DIAGNOSES: 1. Hemorrhagic pancreatitis. 2. 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 3. Hypertension. 4. Acute kidney injury. PROCEDURES: 1. CT of abdomen and pelvis done on admission showed mass in the tail of the pancreas, and the possibility of recurrent chronic pancreatitis cannot be excluded, but the likelihood of malignancy is suggested by the peritoneal implants and adenopathy. 2. Abdomen and pelvis CT with contrast done the day before discharge showed new pleural effusions and basilar atelectasis with worsening ascites. Those findings are more consistent with developing hemorrhagic pancreatitis with necrosis of the pancreatic tail and with neoplasm. CONSULTATIONS: 1. Dr. Lalo Guidry from Oncology 2. Dr. Khoa Upton from Gastroenterology. HOSPITAL COURSE: In brief, this is an 79-year-old male with history of hypertension, diabetes, and diverticulosis, who presented to the emergency department complaining of 4 to 5 days of increasing abdominal pain. In the ER we have ordered a CT of the abdomen with results as above. Oncology and Gastroenterology has been consulted. The day before discharge, they considered that we need to check another CT of the abdomen with results as above. Clinically, this patient was doing fine, and he was able to control his pain with oral medications. So, we have talked with Gastroenterology, and they are not planning to do any procedures in the near future. So ,the patient is feeling well, so patient is going to be discharged in stable condition with follow-up with oncologist in a week. DISCHARGE PHYSICAL EXAMINATION: Vital Signs: Temperature 97.7 degrees, heart rate 73, respiratory rate 12, blood pressure 123/52,m O2 saturation 96% on room air. General examination: This is a chronically ill-appearing 79-year-old male, lying in bed in no acute distress. Cardiovascular exam: S1, S2 heard. No murmurs, gallops, or rubs. Regular rate and rhythm. Respiratory exam: Clear bilaterally to auscultation. No work of breathing or using accessory muscles. Abdomen: Soft, nontender to palpation. Bowel sounds present. No organomegaly. Extremities: No clubbing, cyanosis, or edema. Peripheral pulses present in both legs. Neurological exam: The patient is alert and oriented x3. Moves 4 extremities. DISCHARGE DISPOSITION: Home to self-care. LIST OF MEDICATIONS: We are going to provide [place]ch[place] 5 mg 1 tablet p.o. every 4 hours as needed for abdominal pain. Rest of medications will be continued. DISCHARGE TIME: 29 minutes. cc: Jose Luis Cifuentes MD [facility]TD[facility]
== END 2019-07-13 15:16 | disposition home health service (06) | DRG 439 ==
LOC: ED 12:45 → SUATTDRO 16:49 → 1N 16:49
PROVIDERS: ATTEND Internal Medicine

== ENCOUNTER 2019-07-25 14:49 | Inpatient (IN) ==
--- NOTE | 2019-07-25 15:17 | PROVIDER DOCUMENTATION ---
HPI-General Adult - General Stated Complaint: WEAKNESS Time Seen by Provider: 07/25/19 15:07 Source: patient Allergies/Adverse Reactions: Patient Allergies Allergy/AdvReac Type Severity Reaction Status Date / Time No Known Allergies Allergy Verified 07/25/19 16:01 Home Medications: Home Medication List Medication Instructions Recorded Confirmed Last Taken Type Carvedilol 25 mg PO BID 07/09/19 07/09/19 Unknown History Empagliflozin [Jardiance] 10 mg PO DAILY 07/09/19 07/09/19 Unknown History Fenofibrate,Micronized 134 mg PO DAILY 07/09/19 07/09/19 Unknown History [Fenofibrate] Indapamide 2.5 mg PO DAILY 07/09/19 07/09/19 Unknown History Metformin E.r. [Glucophage Xr] 500 mg PO DAILY 07/09/19 07/09/19 Unknown History PRAVAstatin [Pravachol] 40 mg PO HS 07/09/19 07/09/19 Unknown History Hydrocodone/APAP 5 mg/325 mg 1 - 2 tab PO Q4H PRN PRN #40 tab 07/13/19 Unknown Rx [[place]-5] - History of Present Illness -Gen Adult Nature of Presenting Problems: 79 YOM WITH CHRONIC PANCREATITIS, MASS WAS DC HOME ON 07/13 SINCE THAT TIME THE PATIENT HAS BEEN UNABLE TO EAT, HAD N/V, GENERALIZED WEAKNESS. HE HAS AN APPT WITH GI FOR JULY 31. Location of Pain/Injury: reports: abdomen Pain Radiation: reports: no radiation Quality of Pain: reports: fullness Severity: reports: moderate Onset/Duration: reports: other (3 WKS) Context/Activities at Onset: reports: none Modifying Factors: improves with: nothing Associated Symptoms: reports: malaise, nausea, vomiting, weakness Similar Symptoms Previously?: Yes Recently seen or treated by another doctor?: Yes Review of Systems - Adult - REVIEW OF SYSTEMS - ADULT Constitutional: reports: see HPI, weight loss. denies: no symptoms reported, chills, fever, fatique, night sweats, weight gain, other Eyes: reports: no symptoms reported. denies: see HPI, discharge, dry eyes, decreased vision, blurred vision, double vision, eye pain, redness, other Ears, Nose, Mouth & Throat: reports: no symptoms reported. denies: see HPI, ear discharge, ear pain, hearing loss, tinnitus, epistaxis, sinus problem, nose pain, loose teeth, mouth/dental pain, mouth swelling, hoarseness, throat pain, throat swelling, other Cardiovascular: reports: no symptoms reported. denies: see HPI, chest pain, edema, heart murmur, irregular heart rate, orthopnea, palpitations, poor circulation, PND, syncope, other Respiratory: reports: no symptoms reported. denies: see HPI, chronic cough, cough, dyspnea on exertion, excessive sputum production, hemoptysis, pleurisy, shortness of breath, wheezing, other Gastrointestinal: reports: see HPI, abdominal pain, nausea, poor appetite, vomiting. denies: no symptoms reported, hematemesis, constipation, diarrhea, difficulty swallowing, frequent heartburn, rectal bleeding, other Genitourinary: reports: no symptoms reported. denies: see HPI, dysuria, discharge, frequency, flank pain, frequent UTI's, hematuria, hesitency, incontinence, urinary retention, urgency, other Musculoskeletal: reports: muscle weakness. denies: no symptoms reported, see HPI, bone pain, back pain, frequent leg cramps, joint pain, joint swelling, muscle aches, neck pain, other Integumentary: reports: no symptoms reported. denies: see HPI, hives, hair loss, itching, mole changes, nail changes, rash, skin sores/ulcer, skin thickening, other Neurological: reports: no symptoms reported. denies: see HPI, ataxia, dizziness /vertigo, headache/migraines, loss of balance, numbness, paresthesia, seizure, slurred speech, syncope, tremors, other Psychiatric: reports: no symptoms reported. denies: see HPI, anxiety, anti- depressant use, alcohol/drug dependence, depression, emotional problems, insomni a, panic attacks, suicidal thoughts, other Endocrine: reports: no symptoms reported. denies: see HPI, change in skin pigment, excessive sweating, goiter, cold intolerance, heat intolerance, increased hunger, increased thirst, polyuria, other Hematologic/Lymphatic: reports: no symptoms reported. denies: see HPI, blood clots, easy bruising, low blood count, lymphedema, prolonged bleeding, swollen lymph nodes, transfusions, other Allergic/Immunologic: reports: no symptoms reported. denies: see HPI, allergic reactions, allergic rhinitis, asthma, eczema, food allergy, frequent infections, hay fever, hives, positive PPD, urticaria, other Past History - Adult - PAST MEDICAL HISTORY-ADULT Review of Records: reports: Old Records Reviewed, Nursing Assessment Review, Social history reviewed & non-contributory. Cardiovascular: reports: HTN, hyperlipidemia - PRIOR SURGERIES/PROCEDURES Surgical/Procedure History: reports: cholecystectomy - FAMILY HISTORY Family History: reviewed, not pertinent Physical Exam-General - PHYSICAL EXAM-ADULT Initial Vital Signs Reviewed: Yes - CONSTITUTIONAL General Appearance: alert, no apparent distress, slow to respond - EYES Eyes: PERRL/EOMI, pink conjunctivae - HEAD, EARS, NOSE, MOUTH & THROAT HENMT: normocephalic/atraumatic, normal ENT inspection. negative: moist mucous membranes (DRY) - NECK Neck: non-tender, full range of motion, supple - RESPIRATORY Respiratory: chest non-tender, lungs clear, normal breath sounds, no pleuratic chest pain, no respiratory distress, no accessory muscle use - CARDIOVASCULAR Cardiovascular: normal peripheral pulses, regular rate, rhythm, no gallop, no JVD, no murmur, other (PEDAL EDEMA) - GASTROINTESTINAL (ABDOMEN) Abdominal Exam: soft, no pulsatile mass, distended, tenderness. negative: normal bowel sounds (HYPOACTIVE) - LYMPHATIC Lymphatic: no adenopathy - MUSCULOSKELETAL Back Exam: normal inspection, no CVA tenderness, no vertebral tenderness Extremity: non-tender, normal inspection Peripheral Pulses: radial (R): 2+, radial (L): 2+ - SKIN Integumentary: normal color, normal turgor, warm/dry - NEUROLOGIC Neurologic: grossly normal - PSYCHIATRIC Psych/Mental Status: normal mood/affect, oriented x 3, depressed affect Progress - PLAN OF CARE/RESULTS Progress/Plan/Lab Results: Orders Category Date Time Status Saline Loc NOW Care 07/25/19 15:13 Ordered CBC WITH ELECTRONIC DIFF [HEME] Stat Lab 07/25/19 15:13 Uncollected COMPREHENSIVE METABOLIC PANEL [CHEM] Stat Lab 07/25/19 15:13 Uncollected PRO B-NATRIURETIC PEPTIDE Stat Lab 07/25/19 15:13 Uncollected PROTIME WITH INR [COAG] Stat Lab 07/25/19 15:13 Uncollected PTT [COAG] Stat Lab 07/25/19 15:13 Uncollected Result Diagrams: 07/25/19 15:38 07/25/19 15:38 - EKG 1 Time of EKG reading by physician:: 15:29 EKG Read and Signed by:: Merritt Pina EKG Interpretation (*Must complete 3 of following elements*): Abnormal Rate: 88 Rhythm: NSR [place]: normal QRS: normal [place] Interval: normal ST Wave: non-specific ST changes Prior EKG Comparison: no prior EKG - CONSULTS/PCP/HOSPITALIST Notification #1 *Consult/PCP/Hospitalist*: MARY ANNE ABBOTT Time Discussed: 17:47 Consult Disposition: Admit Departure - Departure Date of Disposition Decision: 07/25/19 Time of Disposition Decision: 16:50 DIAGNOSIS: Pancreatitis, Pancreatic mass, Kidney failure, Dehydration, Anemia Disposition: ADMITTED INPATIENT 09 Certified Medical Emergency: Emergent Condition: Fair Referrals and Follow-Ups: Hussain Hayward [Primary Care Provider] - - Critical Care Note This patient required my direct & personal management of CC.: No Attestation - Physician/ SHIRA Attestation Patient care was provided by Advanced Practice Provider:: Yes Advanced Practice Provider:: Dena Hayward Advanced Practice Provider documentation review:: The Mid-level provider documentation, treatment plan and medical decision making was reviewed by the physician who agrees with all treatment and medical decision making by the MLP. The physician spent face to face time with patient:: No Advanced Practice Provider documentation review:: Supervising physician onsite and consulted in the evaluation and care of this patient. The physician did not have a face to face encounter with the patient.
[2019-07-25 15:58] LABS: BASO# 0.02 X1000 (0.0-0.2); BASO% 0.1 % (0.0-0.8); EOS# 0.02 X1000 (0.0-0.7); EOS% 0.1 % (0.0-10.0); HEMATOCRIT 31.6 % (42.0-52.0); HEMOGLOBIN 9.8 g/dL (14.0-18.0); IMM GRAN# 0.08 X1000 (0.0-0.04); IMM GRAN% 0.5 % (0.0-0.5); LYMPH# 1.41 X1000 (1.2-3.4); MCH 27.9 PG (27-31); MONO# 0.89 X1000 (0.11-0.59); MONO% 5.7 % (1.7-9.3); MPV 8.9 FL (7.4-10.4); NEUT# 13.21 X1000 (1.4-6.5); NEUT% 84.6 % (42.2-75.2); PLT 567 X1000 (130-400); RBC 3.51 XMIL (4.7-6.1); RDW 15.8 % (11.5-14.5); WBC 15.63 X1000 (4.8-10.8)
[2019-07-25 16:15] LABS: INR 1.57; PROTIME 19.1 Seconds (11.0-16.0)
[2019-07-25 16:16] LABS: PTT 35.3 Seconds (22.3-41.8)
[2019-07-25 16:29] LABS: ALB/GLOB RATIO 0.6; ALBUMIN 2.7 g/dL (3.5-5.0); CALCIUM 9.2 mg/dL (8.8-10.2); CREATININE 1.6 mg/dL (0.7-1.2); POTASSIUM 4.5 mmol/L (3.5-5.1); TOTAL BILIRUBIN 0.3 mg/dL (0.20-1.00)
[2019-07-25] MEDS ORDERED: NS 1,000 ML IV ONE (16:39)
[2019-07-25] MEDS ORDERED: ROCEPHIN 2 GM in NS 50 ML IV ONE (16:49)
[2019-07-25] MEDS ORDERED: SODIUM CHLORIDE 0.9% INJ SCH (18:30)
[2019-07-25] MEDS ORDERED: TYLENOL PO PRN (18:31)
--- NOTE | 2019-07-25 18:48 | Diag Imaging Result Doc PS360 ---
EXAM: CHEST-1 VIEW 07/25/2019 HISTORY: dyspnea TECHNIQUE: AP portable upright at 1839 COMMENT: The inspiration is less optimal than on 01/31/2012. Otherwise are has been no significant change. IMPRESSION: Stable chest. Electronically signed by Del Tucker 07/25/2019 6:46 PM
--- NOTE | 2019-07-25 19:16 | Diag Imaging Result Doc PS360 ---
EXAM: CT ABDOMEN/PELVIS W/O CONTRAST 07/25/2019 HISTORY: pancreatitis TECHNIQUE: This exam was performed using automated exposure control, adjustment of mA or kV according to patient size, and/or use of iterative reconstruction technique. COMMENT: There is a large left pleural effusion. The pleural effusion on the right which was present on 07/12/2019 has apparently resolved. The left-sided effusion is somewhat larger however. There is ascites in both subphrenic spaces. There are abnormal fluid collections present in the area of the tail of the pancreas and adjacent to the stomach consistent with pseudocyst formation and chronic pancreatitis. This was also present on the previous study. The kidneys are without evidence of hydronephrosis or stones. There are granulomata in the liver and spleen. There has been previous cholecystectomy. There is diverticulosis in the sigmoid colon. The urinary bladder is not distended. The prostate gland is somewhat enlarged. Compared to the previous examination of 07/12/2019 the free fluid in the pelvis is diminished. The inflammatory changes around the descending colon have diminished. IMPRESSION: Slightly improved inflammatory changes associated with pancreatitis. Improved right pleural effusion. Electronically signed by Del Tucker 07/25/2019 7:14 PM
[2019-07-25 20:07] LABS: URINE SOURCE CATH
[2019-07-25 20:10] LABS: UR EPITHELIAL CELLS <10 /HPF (<10); URINE BACTERIA NEGATIVE /HPF; URINE RBC <10 /HPF (<10); URINE WBC <10 /HPF (<10)
[2019-07-25] MEDS ORDERED: NORCO-10 PO ONE (20:12)
[2019-07-25 20:20] LABS: BILIRUBIN URINE NEGATIVE (NEGATIVE); BLOOD URINE NEGATIVE (NEGATIVE); COLOR YELLOW; GLUCOSE URINE >1000 mg/dL (NEGATIVE); KETONE URINE 80 mg/dL (NEGATIVE); LEUKOCYTES URINE NEGATIVE (NEGATIVE); NITRITE URINE NEGATIVE (NEGATIVE); PH URINE 5.5; PROTEIN URINE NEGATIVE (NEGATIVE); SP GRAVITY URINE 1.019; TURBIDITY URINE CLEAR (CLEAR); UROBILINOGEN URINE NORMAL (NORMAL)
[2019-07-25] MEDS: ZOSYN 3.375 GM in NS 50 ML IV SCH (20:26)
[2019-07-25 20:30] LABS: UR CREAT RANDOM 29.2 mg/dL (14-26); UR PROT RANDOM 9.4 mg/dL
[2019-07-25] MEDS: NS 1,000 ML IV SCH (22:00)
--- NOTE | 2019-07-25 22:49 | HISTORY AND PHYSICAL ---
PRIMARY CARE PHYSICIAN: Dr. Hussain Hayward. CHIEF COMPLAINT: Increasing confusion, anorexia and abdominal pain. HISTORY OF PRESENT ILLNESS: Mr. Beckham is an 79-year-old male with a history of recently diagnosed hemorrhagic pancreatitis, diabetes mellitus, hypertension, and a pancreatic mass who was brought to the ER via EMS due to altered mental status and anorexia at home. The patient was recently discharged from [facility] on 07/13/2019. During that time, the patient spent 4 days in the hospital and was diagnosed with hemorrhagic pancreatitis as well as a pancreatic mass. He was also noted to be in acute kidney injury at the time. The patient was seen by Dr. Upton and Dr. Guidry during the hospitalization, he responded well to bowel rest and his symptoms improved. Upon discharge, the patient was seen by Dr. Guidry and had a PET scan done last that did not reveal any evidence of malignancy. The patient's reports that ever since discharge, the patient has not been eating and this past week, the patient was noted to be more confused. He has also fallen several times and has been bumping into things in the home. The patient has not been eating or drinking and has been complaining of persistent abdominal pain. The patient is scheduled to undergo endoscopy on July [address] Upton. In the ER, the patient was noted to have a white blood cell count of 15.6 and a lipase of 395, as well as a BUN of 41 and a creatinine of 1.6. In light of these findings, the patient will be admitted for further treatment and evaluation. PAST MEDICAL HISTORY: 1. Pancreatic mass. 2. History of hemorrhagic pancreatitis. 3. Diabetes mellitus type 2. 4. Diverticulosis. 5. Severe protein calorie malnutrition. 6. Dyslipidemia. PAST SURGICAL HISTORY: Cholecystectomy. SOCIAL HISTORY: The patient is and lives at home with his . The patient denies any tobacco, alcohol, or illicit drug use. ALLERGIES: No known drug allergies. FAMILY HISTORY: Reviewed and noncontributory due to age. REVIEW OF SYSTEMS: A 12-point review of systems has been performed, please refer to the history of present illness for pertinent positives and negatives. HOME MEDICATIONS: The patient's home medications are not available at this time. PHYSICAL EXAMINATION: VITAL SIGNS: Temperature 97.7 degrees, blood pressure 131/51, heart rate 68, respirations 16, O2 saturation 98% on room air. GENERAL: This is a chronically ill-appearing, elderly male sitting up on the stretcher, in no acute distress. SKIN: No rashes, no lesions. Normal capillary refill. NECK: Supple. No JVD. No lymphadenopathy. No carotid bruit. HEART: S1, S2 normal. Regular rate and rhythm. LUNGS: Clear to auscultation bilaterally. There are diminished breath sounds in the left lung field. ABDOMEN: Positive bowel sounds. Soft. Diffuse tenderness mainly in the epigastric region. EXTREMITIES: Trace pedal edema in the lower extremities. No calf tenderness. Peripheral pulses palpable. NEUROLOGIC: The patient is alert and oriented to self. He is able to move all 4 extremities and answer simple questions. LABS: White blood cell count 15.6, hemoglobin 9.8, hematocrit 31, platelets 567,000. INR 1.5. Sodium 141, potassium 4.5, chloride 90, CO2 16, BUN 41, creatinine 1.6. Glucose 195, lipase 395. Urinalysis greater than a 1000 glucose. IMAGING: CT of the abdomen and pelvis reveals improved inflammatory changes associated with pancreatitis. Large left pleural effusion. Improved right pleural effusion. ASSESSMENT AND PLAN: 1. Acute on chronic pancreatitis. The CT done today shows improvement in the patient's pancreatitis. Will make the patient NPO. IV fluids have been initiated as well as antiemetics and pain medication. 2. Acute kidney injury. We will check urine studies in the meantime, the patient will be started on IV fluids. Will monitor the patient's urine output closely and avoid nephrotoxic agents. 3. Large left pleural effusion. The patient is not requiring supplemental oxygen at this time. We will follow the pleural effusion closely. Will repeat the chest x-ray tomorrow. 4. High anion gap metabolic acidosis. The patient is a diabetic. We will check an acetone level and monitor the blood sugars closely. 5. Severe protein calorie malnutrition. We will consult with the dietitian for further dietary recommendations. 6. Diabetes mellitus type 2. The patient will be placed on sliding scale insulin. 7. Metabolic encephalopathy. We will check a head CT. We will also treat the underlying issues and monitor the patient's mental status closely. 8. Pancreatic mass. The patient is followed by and . 9. Gastrointestinal prophylaxis. The patient has been started on IV Protonix. 10. Deep vein thrombosis prophylaxis. Will start SCDs. cc: Sandra Leblanc MD MTDD
[2019-07-25] MEDS: HUMULIN R SUBQ SCH (22:51)
[2019-07-25 23:12] LABS: ALLEN TEST YES; BE -8.6 mmoll (-3.0-3.0); BLOOD TYPE ARTERIAL; HCO3-(ACT) 18.2 mmoll (20.0-26.0); METHB 1.2 % (0.0-1.5); O2(CT) 12.5 mL/dL (15.0-23.0); O2HB 94.7 % (95.0-99.0); PCO2(98.6) 29 mmHg (35-45); PO2(98.6) 83 mmHg (60-100); SAMPLE BLOOD; SAO2 96.8 % (95.0-100.0); THB 9.3 g/dL (11.5-17.4); pH(98.6) 7.35 (7.35-7.45)
[2019-07-25 23:13] LABS: MODALITY ROOM AIR
[2019-07-25 23:45] LABS: ALBUMIN 2.4 g/dL (3.5-5.0); CALCIUM 8.9 mg/dL (8.8-10.2); CREATININE 1.3 mg/dL (0.7-1.2); PHOSPHORUS 3.4 mg/dL (2.7-4.5); POTASSIUM 4.4 mmol/L (3.5-5.1)
[2019-07-26] MEDS: ZOSYN 3.375 GM in NS 50 ML IV SCH ×4 (03:43→21:46)
[2019-07-26 05:29] LABS: BASO# 0.02 X1000 (0.0-0.2); BASO% 0.1 % (0.0-0.8); EOS# 0.03 X1000 (0.0-0.7); EOS% 0.2 % (0.0-10.0); HEMATOCRIT 29.8 % (42.0-52.0); HEMOGLOBIN 9.3 g/dL (14.0-18.0); IMM GRAN# 0.07 X1000 (0.0-0.04); IMM GRAN% 0.5 % (0.0-0.5); LYMPH# 1.25 X1000 (1.2-3.4); LYMPH% 9.3 % (20.5-51.1); MCH 28.1 PG (27-31); MCHC 31.2 g/dL (33-37); MONO# 0.83 X1000 (0.11-0.59); MONO% 6.2 % (1.7-9.3); MPV 8.8 FL (7.4-10.4); NEUT# 11.23 X1000 (1.4-6.5); NEUT% 83.7 % (42.2-75.2); PLT 484 X1000 (130-400); RBC 3.31 XMIL (4.7-6.1); RDW 15.5 % (11.5-14.5); WBC 13.43 X1000 (4.8-10.8)
--- NOTE | 2019-07-26 05:47 | Diag Imaging Result Doc PS360 ---
EXAM: CT HEAD W/O CONTRAST HISTORY: encephalopathy TECHNIQUE: CT head without contrast COMPARISON: None. FINDINGS: No parenchymal hemorrhage. No epidural or subdural hematoma. No subarachnoid hemorrhage. No mass identified on this noncontrasted exam. No hydrocephalus. No sinus opacification. IMPRESSION: No hemorrhage. Negative brain CT without contrast. A preliminary report was given at 11:18 PM on 07/25/2019 This exam was performed using automated exposure control, adjustment of mA or kV according to patient size, and/or use of iterative reconstruction technique. Electronically signed by Ramesh Post 07/26/2019 5:44 AM
[2019-07-26 05:50] LABS: HEMOGLOBIN A1C 7.3 % (4.8-6.0)
[2019-07-26 05:55] LABS: ALB/GLOB RATIO 0.5; ALBUMIN 2.3 g/dL (3.5-5.0); CALCIUM 9.1 mg/dL (8.8-10.2); CREATININE 1.4 mg/dL (0.7-1.2); POTASSIUM 3.8 mmol/L (3.5-5.1); TOTAL BILIRUBIN 0.25 mg/dL (0.20-1.00); TOTAL PROTEIN 6.5 g/dL (6.3-8.3)
[2019-07-26] MEDS: NS 1,000 ML IV SCH ×3 (06:10→23:36)
[2019-07-26] MEDS: HUMULIN R SUBQ SCH ×4 (06:11→20:30)
[2019-07-26] MEDS: PROTONIX IV SCH (06:11)
[2019-07-26] MEDS ORDERED: SODIUM BICARBONATE 8.4% 100 MEQ in STERILE WATER INJ. 500 ML IV PRN (06:56)
[2019-07-26] MEDS ORDERED: MAGNESIUM SULFATE 2 GM/S.W.I. 2 GM/50 ML IVPB IV PRN (06:56)
[2019-07-26] MEDS ORDERED: HUMULIN R IV ONE (06:56)
[2019-07-26] MEDS ORDERED: SODIUM PHOSPHATE 30 MMOL in D5W 250 ML IV PRN (06:56)
[2019-07-26] MEDS ORDERED: POTASSIUM CHLORIDE 40 MEQ/SWI 40 MEQ/100 ML IVPB IV PRN (06:56)
[2019-07-26] MEDS ORDERED: D5 NS 1,000 ML IV PRN ×3 (06:56→19:05)
[2019-07-26] MEDS ORDERED: D50W SYRINGE IV PRN (06:56)
[2019-07-26] MEDS ORDERED: HUMULIN R 100 UNIT in NS 100 ML IV SCH (07:00)
--- NOTE | 2019-07-26 07:33 | EKG Report ---
Test Performed on : 07/25/2019 3:29:18 PM Test Reason : ED. NO EKG ORDER FOR MUSE Blood Pressure : / mmHG Vent. Rate : 088 BPM Atrial Rate : 088 BPM P-R Int : 174 ms QRS Dur : 074 ms QT Int : 380 ms P-R-T Axes : 044 038 091 degrees QTc Int : 459 ms Normal sinus rhythm. Nonspecific T wave abnormality Abnormal ECG No previous ECGs available Unconfirmed Result
--- NOTE | 2019-07-26 07:45 | Diag Imaging Result Doc PS360 ---
EXAM: CHEST-1 VIEW HISTORY: pleural effusion TECHNIQUE: Single view COMPARISON: 07/25/2019 FINDINGS: Poor inspiratory effort. The heart is not enlarged. The vessels are not distended. There are no infiltrates. No effusion identified. IMPRESSION: Negative exam. Electronically signed by Ramesh Post 07/26/2019 7:42 AM
[2019-07-26 07:50] LABS: ALLEN TEST NO; BE -6.5 mmoll (-3.0-3.0); BLOOD TYPE ARTERIAL; HCO3-(ACT) 19.9 mmoll (20.0-26.0); METHB 0.9 % (0.0-1.5); O2HB 96.3 % (95.0-99.0); PCO2(98.6) 31 mmHg (35-45); PO2(98.6) 98 mmHg (60-100); SAMPLE BLOOD; SAO2 98.9 % (95.0-100.0); THB 9.5 g/dL (11.5-17.4); pH(98.6) 7.37 (7.35-7.45)
[2019-07-26 07:51] LABS: MODALITY BI PAP
[2019-07-26 08:42] LABS: CALCIUM 9.1 mg/dL (8.8-10.2); CREATININE 1.5 mg/dL (0.7-1.2); MAGNESIUM 1.9 mg/dL (1.5-2.7); PHOSPHORUS 2.8 mg/dL (2.7-4.5); POTASSIUM 4.1 mmol/L (3.5-5.1)
[2019-07-26] MEDS: POTASSIUM CHLORIDE 20 MEQ/SWI 20 MEQ/100 ML IVPB IV PRN ×3 (10:04→23:49)
[2019-07-26] MEDS: ZOFRAN IV PRN ×2 (10:24→16:23)
[2019-07-26] MEDS: DILAUDID IV PRN ×3 (10:24→20:32)
[2019-07-26 11:18] LABS: CALCIUM 8.9 mg/dL (8.8-10.2); CREATININE 1.4 mg/dL (0.7-1.2); MAGNESIUM 1.8 mg/dL (1.5-2.7); PHOSPHORUS 2.2 mg/dL (2.7-4.5); POTASSIUM 4.4 mmol/L (3.5-5.1)
--- NOTE | 2019-07-26 13:29 | PROGRESS NOTE ---
DATE: 07/26/2019 INTERVAL HISTORY: Mr. Beckham was admitted for suspected acute on chronic pancreatitis. Overnight, no acute events. The patient's is at bedside. The patient is complaining of nausea and abdominal pain. Denies vomiting. Has not had any bowel movement. Apparently, he has not been able to eat since the last 2 weeks. OBJECTIVE: VITAL SIGNS: Temperature 98 degrees, pulse 70, respiratory 18, blood pressure 136/68, saturating 98% on room air. PHYSICAL EXAMINATION: General: He is lethargic and appears tired though he is alert. HEENT: Oral cavity is dry. Lungs: Air entry bilaterally equal. No wheeze, rhonchi, or crackles. Cardiovascular: S1, S2 normal. No murmur, rub, or gallop. Abdomen: Distended, nontender. He does have abdominal wall edema, tympanic to percussion in the center of the abdomen. Dullness over bilateral flanks. It was hard to elicit fluid thrill and shifting dullness. Extremities: He has mild lower extremity edema. LABORATORY DATA: Suggestive of persistent leukocytosis, normocytic anemia, thrombocytosis. No acidosis. He does have elevated anion gap, low bicarbonate, acute kidney injury. He does have elevated lipase. MICROBIOLOGY: Blood cultures are in lab. IMAGING: Chest x-ray today morning suggests poor inspiratory effort without any infiltrates or effusion. Head CT yesterday was unremarkable for any acute pathology. ASSESSMENT AND PLAN: 1. Acute on chronic pancreatitis with suspected hemorrhagic pancreatitis on previous admission or pancreatic pseudocyst. He was listed to be taking indapamide which is a thiazide diuretic which could in theory contribute to acute pancreatitis. I will follow up with triglyceride levels. I will consult Gastroenterology. I will keep him on intravenous fluids. His worsening ascites is also of concern. He denies any alcohol use. 2. Elevated anion gap and low bicarbonate. His ABG did not have acidosis. His blood sugars were normal. Sodium glucose "transporter inhibitors" like Jardiance or empagliflozin can rarely cause euglycemic diabetic ketoacidosis. I will keep him on insulin drip, intravenous fluids according to diabetic ketoacidosis protocol. His acute pancreatitis on chronic could also be contributing to it. 3. Acute kidney injury, severe protein energy malnutrition and large left parietal effusion. Currently appears to be stable. Follow up with serial BMP. I will also get lactate and triglyceride levels. 4. Acute encephalopathy. Head CT was unremarkable for acute pathology. I will get ammonia levels. 5. Pancreatic mass. Outpatient PET scan was unremarkable for any malignancy. Appreciate GI recommendation. DISPOSITION: The patient appears sick. I updated the patient's at bedside about his clinical condition. I answered all of her questions. I will keep the patient on prophylactic intravenous antibiotic until the blood culture results comes back for suspected sepsis or a genetic form of acute pancreatitis. cc: Alonso Maddox MD MTDD
[2019-07-26 15:51] LABS: CALCIUM 8.8 mg/dL (8.8-10.2); CREATININE 1.2 mg/dL (0.7-1.2); MAGNESIUM 1.8 mg/dL (1.5-2.7); POTASSIUM 4.4 mmol/L (3.5-5.1)
[2019-07-26 19:38] LABS: CALCIUM 8.8 mg/dL (8.8-10.2); CREATININE 1.3 mg/dL (0.7-1.2); MAGNESIUM 1.7 mg/dL (1.5-2.7); PHOSPHORUS 1.6 mg/dL (2.7-4.5); POTASSIUM 3.7 mmol/L (3.5-5.1)
[2019-07-26 23:22] LABS: CREATININE 1.3 mg/dL (0.7-1.2); MAGNESIUM 2.1 mg/dL (1.5-2.7); POTASSIUM 3.8 mmol/L (3.5-5.1)
[2019-07-26 23:34] LABS: PHOSPHORUS 0.9 mg/dL (2.7-4.5)
[2019-07-27 00:33] LABS: ALLEN TEST YES; BE 4.2 mmoll (-3.0-3.0); BLOOD TYPE ARTERIAL; HCO3-(ACT) 28.2 mmoll (20.0-26.0); MODALITY CANNULA; O2(CT) 13.4 mL/dL (15.0-23.0); O2HB 96.5 % (95.0-99.0); PCO2(98.6) 45 mmHg (35-45); PO2(98.6) 170 mmHg (60-100); SAMPLE BLOOD; SAO2 98.4 % (95.0-100.0); THB 9.6 g/dL (11.5-17.4); pH(98.6) 7.42 (7.35-7.45)
[2019-07-27] MEDS: NORCO-10 PO PRN (00:33)
[2019-07-27 03:24] LABS: BASO# 0.02 X1000 (0.0-0.2); BASO% 0.2 % (0.0-0.8); EOS# 0.04 X1000 (0.0-0.7); EOS% 0.3 % (0.0-10.0); HEMATOCRIT 27.5 % (42.0-52.0); HEMOGLOBIN 8.5 g/dL (14.0-18.0); IMM GRAN# 0.07 X1000 (0.0-0.04); IMM GRAN% 0.6 % (0.0-0.5); LYMPH# 0.75 X1000 (1.2-3.4); LYMPH% 6.5 % (20.5-51.1); MCH 27.8 PG (27-31); MCHC 30.9 g/dL (33-37); MCV 89.9 FL (81-99); MONO# 0.67 X1000 (0.11-0.59); MONO% 5.8 % (1.7-9.3); MPV 8.4 FL (7.4-10.4); NEUT# 10.07 X1000 (1.4-6.5); NEUT% 86.6 % (42.2-75.2); PLT 423 X1000 (130-400); RBC 3.06 XMIL (4.7-6.1); RDW 15.4 % (11.5-14.5); WBC 11.62 X1000 (4.8-10.8)
[2019-07-27 03:41] LABS: CALCIUM 8.4 mg/dL (8.8-10.2); CREATININE 1.4 mg/dL (0.7-1.2); PHOSPHORUS 2.7 mg/dL (2.7-4.5)
[2019-07-27] MEDS: ZOSYN 3.375 GM in NS 50 ML IV SCH ×4 (03:48→20:57)
[2019-07-27 06:00] LABS: ALB/GLOB RATIO 0.7; ALBUMIN 2.4 g/dL (3.5-5.0); DIRECT BILIRUBIN 0.1 mg/dL (0.00-0.20); TOTAL BILIRUBIN 0.18 mg/dL (0.20-1.00)
[2019-07-27] MEDS: PROTONIX IV SCH (06:00)
[2019-07-27] MEDS: HUMULIN R SUBQ SCH ×4 (06:01→20:57)
--- NOTE | 2019-07-27 07:28 | Diag Imaging Result Doc PS360 ---
EXAM: CHEST-PORTABLE HISTORY: c/o dyspnea, Hx pleural effusions TECHNIQUE: Single view COMPARISON: 07/26/2019 FINDINGS: The lungs are well expanded. The heart is not enlarged. The vessels are not distended. There are no infiltrates. No effusion identified. IMPRESSION: Negative exam. Electronically signed by Ramesh Post 07/27/2019 7:26 AM
[2019-07-27 08:14] LABS: CALCIUM 8.7 mg/dL (8.8-10.2); CREATININE 1.6 mg/dL (0.7-1.2); PHOSPHORUS 1.9 mg/dL (2.7-4.5); POTASSIUM 3.8 mmol/L (3.5-5.1)
[2019-07-27 08:21] LABS: BASO# 0.03 X1000 (0.0-0.2); BASO% 0.3 % (0.0-0.8); EOS# 0.04 X1000 (0.0-0.7); EOS% 0.4 % (0.0-10.0); HEMATOCRIT 28.9 % (42.0-52.0); HEMOGLOBIN 8.9 g/dL (14.0-18.0); IMM GRAN# 0.08 X1000 (0.0-0.04); IMM GRAN% 0.7 % (0.0-0.5); LYMPH# 0.77 X1000 (1.2-3.4); LYMPH% 7.1 % (20.5-51.1); MCH 27.6 PG (27-31); MCHC 30.8 g/dL (33-37); MCV 89.8 FL (81-99); MONO# 0.59 X1000 (0.11-0.59); MONO% 5.5 % (1.7-9.3); MPV 8.1 FL (7.4-10.4); NEUT# 9.28 X1000 (1.4-6.5); PLT 411 X1000 (130-400); RBC 3.22 XMIL (4.7-6.1); RDW 15.5 % (11.5-14.5); WBC 10.79 X1000 (4.8-10.8)
[2019-07-27 09:33] LABS: ANISOCYTOSIS 2+; EOS 2 % (1-10); LARGE PLATELETS 2+; LYMPHS 34 % (21-51); MONO 4 % (1-9); NRBC 2 % (0-0); SEGS 60 % (42-75)
[2019-07-27] MEDS ORDERED: LEVEMIR SUBQ ONE (11:03)
--- NOTE | 2019-07-27 11:57 | GASTROENTEROLOGY CONSULTATION ---
DATE: 07/27/2019 REASON FOR CONSULTATION: Pancreatitis. PRIMARY ENGAGEMENT SPECIALIST: Dr. Upton. HISTORY OF PRESENT ILLNESS: Mr. Angelo Beckham is an 79-year-old gentleman with past medical history of hypertension, hyperlipidemia, noninsulin dependent diabetes, diverticulosis, and chronic pancreatitis who was recently hospitalized here with acute on chronic pancreatitis with question of pancreatic tail malignancy with omental involvement who represents with confusion, anorexia and poor appetite. History is obtained from the patient and spouse at bedside. Both are poor historians. However, the patient originally had a case of presumably gallstone pancreatitis in 2011. He underwent a cholecystectomy at that time, and was doing well up until recently when he was hospitalized here with acute pancreatitis, and found to have hemorrhagic involvement. He was treated conservatively with supportive care. At that time, it was noted that he had potentially a mass in the pancreatic tail measuring about 3.3 cm, which could be related to malignancy versus chronic pancreatitis. There was some associated peritoneal implants and adenopathy suggested on CT. This was done on 07/09. A repeat CT on 07/12 showed pleural effusions with worsened ascites, hemorrhagic pancreatitis with necrosis of the pancreatic tail, the soft tissue density nodules that were previously demonstrated near the splenic flexure were thought to be more hematoma-related. There were also some developing fluid collections in the abdomen concerning for pseudocyst at the splenic flexure and adjacent to the stomach. CT yesterday showed improving inflammatory changes with resolution of a right pleural effusion. Apparently, there was also a left pleural effusion noted on CT. There were some areas of pseudocyst formation around the stomach. However, CT is limited without contrast. Also of note, there were some inflammatory changes around the descending colon which were also improved. Per the spouse, the patient has eaten very little over the last several weeks. He has been losing weight. However, he denies any abdominal pain. He does have nausea and vomiting. No diarrhea or constipation. He does have intermittent loose stools, but not consistently. No rectal bleeding, melena hematemesis, or fevers. He has been taking Phenergan at home and drinking Glucerna as tolerated. Per the , he became progressively weak and last weekend was unable to get out of bed and slid to the floor at which time EMS was called and he was brought into the hospital. On presentation, he was noted to have a white count of 15.6, hemoglobin 9.8, and platelets of 567,000 and creatinine of 1.3. He has a bicarb of 15 with iron gap of 31. He was treated with insulin drip for presumably DKA and persistent pancreatitis. Lipase on presentation was 395. To me, he denies any abdominal pain or discomfort. Of note, the patient was also followed by Dr. Guidry who did an outpatient PET scan that was negative for intra-abdominal malignancy. Dr. Upton has suggested possible EUS evaluation of pancreatic tail mass which has not been done at this point. REVIEW OF SYSTEMS: As per HPI, otherwise 12 point review of systems negative. PAST MEDICAL HISTORY: As per HPI. PAST SURGICAL HISTORY: Cholecystectomy. MEDICATIONS: On last discharge, include [place], fenofibrate, indapamide, metformin p.o. glitazone, pravastatin, carvedilol, losartan and glimepiride were stopped. Also, he is on Victoza and Phenergan. ALLERGIES: No known drug allergies. FAMILY HISTORY: No family history of GI malignancies. SOCIAL HISTORY: No smoking, alcohol or drug use. PHYSICAL EXAMINATION: Vital Signs: Temperature 97.9 degrees, heart rate of 80, respiratory rate 20, blood pressure 130/63, O2 saturation 3 L nasal cannula, and 100% on 3 L nasal cannula. General: Patient is sleepy, but arousable and answers questions appropriately in no acute distress. HEENT: Sclerae anicteric. Moist mucous membranes. Extraocular movements are intact. Neck: Supple. No JVD or lymphadenopathy. Cardiac: Regular rate and rhythm. No murmurs. Lungs: Clear to auscultation bilaterally. No wheezing. Abdomen: Obese, soft, nontender, and nondistended. Normoactive bowel sounds. No rebound or guarding. Extremities: No clubbing, cyanosis, or edema. Neurologic: The patient is moving all extremities symmetrically. Nonfocal. LABORATORY: White count of 10.79, hemoglobin 8.9, and platelets of 441,000. ABG with pH of 7.4, pCO2 45, PO2 of 170. Sodium 149, potassium 3.8, chloride of 108, bicarb 29, BUN of 23, creatinine of 1.6 from 1.3 yesterday, glucose of 218, calcium 8.7, phosphorus 1.9, magnesium 2.1, total bilirubin of 0.18, AST of 13, ALT of 90, alkaline phosphatase 55, total protein 6.0, and albumin 2.4. Lipase yesterday was 558. TSH of 2.33. IMAGING: CT without contrast of the abdomen and pelvis on 07/25 showed slightly improved inflammatory changes with stable pancreatitis improved right pleural effusion/X- ray shows stable chest. Head CT with no hemorrhage. Negative CT without contrast. Chest x-ray today was normal. Prior Labs: Normal CEA and CA-99 were normal. ASSESSMENT AND PLAN: Mr. Angelo Beckham is an 79-year-old gentleman who presents with anorexia, altered mental status, worsening generalized weakness in the setting of evolving hemorrhagic pancreatitis with question of pancreatic tail malignancy. His labs were notable for leukocytosis with an anion gap metabolic acidosis. He has been treated with supportive care including being made NPO, empiric Zosyn, and pain control. CT shows improving pancreatitis and inflammatory changes with new left pleural effusion that cannot be seen on chest x-ray. His hemoglobin is chronically low at 8.9. He is not having any overt bleeding at this time. Creatinine is slightly elevated as well as sodium. The patient appears to be iron depleted currently. We will continue IV fluids and give him a full liquid diet. He is on PPI 40 mg IV once daily, Zofran as needed for nausea and Tylenol. We will continue to follow his course. Ultimately, he will need an endoscopic ultrasound to evaluate the pancreatic tail lesion. Clinically, he does not appear to be having an acute pancreatitis as he does not endorse any abdominal pain at this time. We will advance his diet as tolerated. I would appreciate getting nutrition involved in his care given his protein calorie malnutrition. # Acute pancreatitis # Pancreatic mass # Leukocytosis # Protein calorie malnutrition # Blood loss anemia # KIESHA We will plan for Dr. Upton to resume care for this patient. Thank you for this consult. We will follow with you. Please call with any questions or concerns. [facility] MEDICAL CENTERDick
[2019-07-27] MEDS: ZOFRAN IV PRN ×3 (12:06→20:57)
[2019-07-27] MEDS: D5W 1,000 ML IV SCH (12:24)
--- NOTE | 2019-07-27 19:43 | PROGRESS NOTE ---
DATE: 07/27/2019 SUBJECTIVE: The patient is resting comfortably in bed. He states that he has been feeling nauseated and having some abdominal discomfort. He could barely tolerate water this morning. OBJECTIVE: Vital Signs: Temperature 98.2 degrees, blood pressure 134/59, heart rate 92, respirations 12, O2 saturations 99% on 3 L nasal cannula. Intake 200; output 325. General: This is a chronically ill-appearing elderly male, lying in bed in no acute distress. Heart: S1, S2 normal. Regular rate and rhythm. Lungs: Equal air entry bilaterally. No wheezing. No rales. Abdomen: Positive bowel sounds. Soft, nontender. Mildly distended. Extremities: Trace pedal edema. No cyanosis. No calf tenderness. Neurologic: The patient is alert and oriented x4. LABS: Sodium 149, potassium 3.8, chloride 108, CO2 29. BUN 23, creatinine 1.6, glucose 218. Magnesium 2.1, phosphorus 1.9. White blood cell count 10, hemoglobin 8.9, hematocrit 28, platelets 411. ASSESSMENT AND PLAN: 1. Acute pancreatitis. The patient is still nauseated. We will switch the patient to a clear liquid diabetic diet. Gastroenterology is following. 2. Pancreatic mass. This will need further workup as outpatient. Gastroenterology is following. 3. Diabetic ketoacidosis. Resolved. We will transition the patient to subcutaneous insulin. 4. Diabetes mellitus type 2. The patient is on oral home medication for his diabetes. He will need to be started on insulin therapy. We will start the patient on Levemir twice a day with sliding scale coverage. 5. Severe protein calorie malnutrition. We will consult the dietitian for dietary recommendations. 6. Leukocytosis. Resolved. 7. Acute kidney injury on chronic kidney disease. We will check urine studies. We will also continue with intravenous fluids. 8. Hypernatremia. We will start the patient on D5W. Will need to monitor the sugars closely since the patient is diabetic. 9. Deep venous thrombosis prophylaxis. Will start the patient on heparin. cc: Sandra Leblanc MD MTDD
[2019-07-27] MEDS: LEVEMIR SUBQ SCH (20:56)
[2019-07-27] MEDS: MELATONIN PO SCH (20:56)
[2019-07-27] MEDS: HEPARIN SUBQ SCH (20:57)
[2019-07-27] MEDS ORDERED: LEVEMIR SUBQ SCH (21:00)
[2019-07-28] MEDS: D5W 1,000 ML IV SCH ×3 (01:38→15:37)
[2019-07-28] MEDS: ZOFRAN IV PRN ×3 (01:42→20:01)
[2019-07-28] MEDS: ZOSYN 3.375 GM in NS 50 ML IV SCH ×4 (02:16→20:49)
[2019-07-28] MEDS: PROTONIX IV SCH (06:06)
[2019-07-28] MEDS: HUMULIN R SUBQ SCH ×4 (06:16→20:51)
[2019-07-28 06:45] LABS: HEMATOCRIT 27.2 % (42.0-52.0); HEMOGLOBIN 8.2 g/dL (14.0-18.0); MCH 27.4 PG (27-31); MCHC 30.1 g/dL (33-37); MPV 8.7 FL (7.4-10.4); RBC 2.99 XMIL (4.7-6.1); RDW 15.7 % (11.5-14.5); WBC 5.86 X1000 (4.8-10.8)
[2019-07-28 07:12] LABS: MAGNESIUM 1.7 mg/dL (1.5-2.7); PHOSPHORUS 1.5 mg/dL (2.7-4.5)
[2019-07-28 07:14] LABS: ALB/GLOB RATIO 0.6; CALCIUM 8.2 mg/dL (8.8-10.2); CREATININE 1.3 mg/dL (0.7-1.2); POTASSIUM 2.9 mmol/L (3.5-5.1); TOTAL BILIRUBIN 0.23 mg/dL (0.20-1.00); TOTAL PROTEIN 5.6 g/dL (6.3-8.3)
[2019-07-28] MEDS ORDERED: MAGNESIUM SULFATE 2 GM/S.W.I. 2 GM/50 ML IVPB IV ONE (07:41)
[2019-07-28] MEDS ORDERED: POTASSIUM PHOSPHATE 50 MMOL in NS 250 ML IV ONE (07:42)
--- NOTE | 2019-07-28 08:20 | Diag Imaging Result Doc PS360 ---
EXAM: ABDOMEN FLAT/UPRIGHT - 07/28/2019 HISTORY: constipation/abdominal pain TECHNIQUE: Portable AP spine abdomen COMPARISON: 01/31/2012 FINDINGS: There is gas visible in several borderline distended small bowel loops. There is gas visible in mostly nondistended colon and rectum. There is no indication of excessive retained fecal debris in colon. IMPRESSION: Nonspecific borderline gaseous small bowel distention. Electronically signed by Ramu Henry 07/28/2019 8:18 AM
[2019-07-28] MEDS: HEPARIN SUBQ SCH ×2 (08:58→20:49)
[2019-07-28] MEDS: LEVEMIR SUBQ SCH ×2 (08:59→20:50)
[2019-07-28] MEDS: NORCO-10 PO PRN ×2 (11:20→19:59)
[2019-07-28] MEDS ORDERED: CLINIMIX E 4.25%-5% SOLUTION 1,000 ML IV SCH (17:00)
--- NOTE | 2019-07-28 17:10 | PROGRESS NOTE ---
DATE: 07/28/2019 SUBJECTIVE: The patient is resting comfortably. He complains of abdominal discomfort as well as nausea. He is not eating or drinking anything. OBJECTIVE: Vital Signs: Temperature 98.4 degrees, blood pressure 139/52, heart rate 75, respirations 17, O2 saturations 100% on 2 L nasal cannula. General: This is a chronically ill- appearing elderly male lying in bed in no acute distress. Heart: S1, S2 normal. Regular rate and rhythm. Lungs: Clear to auscultation bilaterally. No wheezing, no rales, no rhonchi. Abdomen: Positive bowel sounds. Soft, nontender, nondistended. Extremities: Trace pedal edema in the lower extremities. Neuro: The patient is alert and oriented x3. LABS: White blood cell count 5.8, hemoglobin 8.2, hematocrit 27, platelets 326,000. Sodium 140, potassium 2.9, chloride 101, CO2 30, BUN 16, creatinine 1.3, glucose 176, magnesium 1.7, phosphorus 1.5, albumin 2. ASSESSMENT AND PLAN: 1. Acute pancreatitis. The patient continues to complain of abdominal discomfort as well as persistent nausea whenever he tries to eat or drink anything. Will await further recommendations from GI. 2. Pancreatic mass. Aware. The patient will require an EUS as outpatient for further workup. 3. Diabetic ketoacidosis. Resolved. 4. Insulin-dependent diabetes mellitus. Continue on long-acting insulin. 5. Severe protein calorie malnutrition. Continue with Ensure with each meal. Will also start the patient on Clinimix since he is not eating or drinking at all. 6. Acute kidney injury. Slowly improving. Continue with IV fluid hydration. 7. Gastrointestinal prophylaxis. Continue on IV Protonix. 8. Deep vein thrombosis prophylaxis. Continue on heparin. cc: Sandra Leblanc MD
[2019-07-28 18:38] LABS: MAGNESIUM 1.9 mg/dL (1.5-2.7); PHOSPHORUS 4.2 mg/dL (2.7-4.5)
[2019-07-28] MEDS ORDERED: MORPHINE IV ONE (20:49)
[2019-07-28] MEDS: MELATONIN PO SCH (20:50)
--- NOTE | 2019-07-28 22:35 | PROVIDER PROGRESS NOTE ---
Progress Note S: Patient has N/V with PO intake including fluids. He denies any abdominal pain and is having nonbloody BMs. O: Last Vital Signs Temp 98.5 F 07/28/19 20:00 Pulse 71 07/28/19 20:00 Resp 24 07/28/19 20:00 BP 161/62 07/28/19 20:00 Pulse Ox 92 L 07/28/19 20:00 Height 5 ft 6 in Weight 172 lb 6 oz GEN: awake, alert, NAD HEENT: anicteric, MMM NECK: supple, no JVD or lAD PULM: CTAB no wheezing ABD: obese, soft NT/ND BS present EXT: no cce NEURO: nonfocal LABS: 07/28/19 07/28/19 07/28/19 05:57 05:57 05:57 WBC 5.86 Hgb 8.2 L Plt Count 326 Sodium 140 Potassium 2.9 L D Chloride 101 Carbon Dioxide 30 BUN 16 Creatinine 1.3 H Glucose 176 H Calcium 8.2 L Phosphorus 1.5 L Total Protein 5.6 L Albumin 2.0 L EXAM: ABDOMEN FLAT/UPRIGHT - 07/28/2019 HISTORY: constipation/abdominal pain TECHNIQUE: Portable AP spine abdomen COMPARISON: 01/31/2012 FINDINGS: There is gas visible in several borderline distended small bowel loops. There is gas visible in mostly nondistended colon and rectum. There is no indication of excessive retained fecal debris in colon. IMPRESSION: Nonspecific borderline gaseous small bowel distention. ASSESSMENT AND PLAN: Mr. Angelo Beckham is an 79-year-old gentleman who presents with anorexia, a ltered mental status, worsening generalized weakness in the setting of evolving hemorrhagic pancreatitis with question of pancreatic tail malignancy. His labs were notable for leukocytosis with an anion gap metabolic acidosis, anemia, and CT showing improving inflammatory changes. Clinically, he does not have symptoms of pancreatitis. However, he continues to not be able to tolerate PO intake. Wi ll continue PPI, antiemetics prn, IVFs, liquid diet and plan for diagnostic EGD with Dr. Lozoya Tuesday. He will ultimately need EUS of the pancreas given negative PET scan and inconclusive workup for malignancy thus far. # N/V # Anemia # Hypokalemia # Acute on chronic pancreatitis # Question pancreatic mass # Protein calorie malnutrition Will follow with you. Please call with questions
[2019-07-29] MEDS: NORCO-10 PO PRN (03:21)
[2019-07-29] MEDS: ZOSYN 3.375 GM in NS 50 ML IV SCH (03:27)
[2019-07-29] MEDS: ZOFRAN IV PRN (03:28)
[2019-07-29 05:41] LABS: BASO# 0.07 X1000 (0.0-0.2); BASO% 0.6 % (0.0-0.8); EOS# 0.02 X1000 (0.0-0.7); EOS% 0.2 % (0.0-10.0); HEMATOCRIT 23.1 % (42.0-52.0); HEMOGLOBIN 6.9 g/dL (14.0-18.0); IMM GRAN# 0.06 X1000 (0.0-0.04); IMM GRAN% 0.5 % (0.0-0.5); LYMPH# 2.62 X1000 (1.2-3.4); LYMPH% 20.7 % (20.5-51.1); MCH 27.7 PG (27-31); MCHC 29.9 g/dL (33-37); MCV 92.8 FL (81-99); MONO# 0.75 X1000 (0.11-0.59); MONO% 5.9 % (1.7-9.3); MPV 9.3 FL (7.4-10.4); NEUT# 9.15 X1000 (1.4-6.5); NEUT% 72.1 % (42.2-75.2); PLT 424 X1000 (130-400); RBC 2.49 XMIL (4.7-6.1); RDW 15.9 % (11.5-14.5); WBC 12.67 X1000 (4.8-10.8)
[2019-07-29] MEDS ORDERED: NEO-SYNEPHRINE 50 MG in NS 250 ML IV SCH (05:45)
[2019-07-29] MEDS ORDERED: LEVOPHED 8 MG in D5 1/2 NS 250 ML IV SCH (05:45)
[2019-07-29 05:51] LABS: ALLEN TEST YES; BE -9.7 mmoll (-3.0-3.0); BLOOD TYPE ARTERIAL; HCO3-(ACT) 17.4 mmoll (20.0-26.0); METHB 0.3 % (0.0-1.5); O2(CT) 10.9 mL/dL (15.0-23.0); O2HB 98.3 % (95.0-99.0); PCO2(98.6) 27 mmHg (35-45); PO2(98.6) 130 mmHg (60-100); SAMPLE BLOOD; SAO2 99.9 % (95.0-100.0); THB 7.7 g/dL (11.5-17.4); pH(98.6) 7.35 (7.35-7.45)
--- NOTE | 2019-07-29 05:53 | Diag Imaging Result Doc PS360 ---
EXAM: CHEST-PORTABLE HISTORY: dyspnea TECHNIQUE: Single view COMPARISON: 07/27/2019 FINDINGS: Poor inspiratory effort. Heart is mildly prominent. No pulmonary edema. No pleural effusions identified. No consolidation. IMPRESSION: Mild cardiomegaly Electronically signed by Ramesh Post 07/29/2019 5:51 AM
[2019-07-29 05:54] LABS: MODALITY CANNULA
[2019-07-29 06:01] LABS: MAGNESIUM 2.2 mg/dL (1.5-2.7)
[2019-07-29 06:04] LABS: ALB/GLOB RATIO 0.6; ALBUMIN 2.2 g/dL (3.5-5.0); CREATININE 1.8 mg/dL (0.7-1.2); POTASSIUM 4.4 mmol/L (3.5-5.1); TOTAL BILIRUBIN 0.41 mg/dL (0.20-1.00); TOTAL PROTEIN 5.6 g/dL (6.3-8.3)
[2019-07-29] MEDS ORDERED: EPINEPHRINE SYRINGE IV ONE (07:03)
--- NOTE | 2019-07-29 07:05 | DISCHARGE SUMMARY ---
DATE AND TIME: 07/29/2019 at 0505. Late Entry Critical Care Progress Note. Mr. Beckham is an 79-year-old male who was admitted on 07/25/2019. He has been being treated for acute pancreatitis. 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 He also did previously have diabetic ketoacidosis, which has now resolved. He is an insulin-dependent diabetic. He also had acute kidney injury as well. He was receiving Clinimix and IV fluid hydration. At approximately 0505 this a.m. on 07/29/2019, I did receive a call from the patient's nurse, who said the patient became acutely altered and was not responding correctly to questions. They did go ahead and call the critical assistance team. They did do a stat fingerstick blood sugar as well, which both readings were elevated, with the first being 404 and the second being 372. Upon arrival to the patient's room, the patient was pale, clammy, mottled. His blood pressure was low, was 80s to 90s systolically. His heart rate was elevated in the 130s. Upon initial arrival to the room, one of the patient's nurses did report that he did tell her his name and date of , though briefly after this, he did become nonresponsive to questions. He did have pupils that were slightly dilated at 4 mm bilaterally and they were nonreactive. The patient did have very pale sub conjunctiva. He was breathing, though he did have very shallow breathing. His sat was in the high 80s. We did go ahead and increase his oxygen and placed him on Bipap. We did order normal saline bolus. The patient did have diminished lung sounds in bilateral bases, as well as he did have coarse rhonchi. His abdomen did appear to be distended. His radial pulses weak and thready. We did go ahead and order stat labs of CBC, CMP, magnesium, troponin, CK, and type and screen. We also ordered a stat ABG and chest x-ray. Unfortunately, the patient's condition did continue to decline. He began having agonal respirations. He was still remaining hypotensive as well. I speak with the patient's and updated her on his condition. I did inform her that he was not breathing adequately on his own, and that if we did not intervene, he would ultimately stop breathing and would likely pass away. I did speak with her and confirmed that the patient was initially a DO NOT RESUSCITATE level 1. I did ask the patient's if she wanted to continue with his resuscitation status being and level 1 DO NOT RESUSCITATE. She said no and did state that she wanted all resuscitative measures performed. The patient condition did continue to decline and he did have cardiopulmonary arrest. CPR and ACLS protocol was initiated. A code blue was called. Dr. Brown and the ER physician, Dr. Tripathi, did respond to the code. They did both speak with the patient's about further life sustaining measures. According to the patient's , they did provide a copy of the patient's living will, for which he did previously state that he did want to be a DO NOT RESUSCITATE level 1. He did not want any life-sustaining measures performed. After the patient's did speak with their daughter, they did decide to continue with the DO NOT RESUSCITATE level 2 status. They do want ACLS medications given, such as pressors, though did not want him to be intubated. They do not want chest compressions. They do not want defibrillation. For the patient's blood pressure, we did go ahead and give a 500 mL normal saline bolus. We did start pressors of Levophed and Alexandr-Synephrine. They did not want the patient placed on BiPAP. They did agree to having him placed on a nonrebreather. The patient was placed on a nonrebreather, though his respiratory status did continue to decline. He did become apneic and then did have bradycardia, which continued into asystole. There was no palpable pulse present. There were no heart tones auscultated. The patient was apneic and did not have any respiratory effort. The patient did have asystole on the monitor at 0550. Time of was 0550. The patient's and daughter were present at bedside. Please see nurses notes, critical assist team record, and code blue documentation for further detailed information. Dictated by MARY ANNE Beavers for Jose Brown MD cc: Jose Brown MD [facility]
[2019-07-29 22:33] VITALS: BP 63/40
--- NOTE | 2019-07-30 09:27 | EKG Report ---
Test Performed on : 07/29/2019 05:08:28 AM Test Reason : Done. No order in [place] Blood Pressure : / mmHG Vent. Rate : 148 BPM Atrial Rate : 148 BPM P-R Int : 134 ms QRS Dur : 066 ms QT Int : 266 ms P-R-T Axes : 022 030 058 degrees QTc Int : 417 ms Critical Test Result: High HR Sinus tachycardia. Nonspecific ST abnormality Abnormal ECG When compared with ECG of 25-JUL-2019 15:29, (Unconfirmed) Vent. rate has increased BY 60 BPM Nonspecific T wave abnormality, improved in Anterolateral leads Confirmed by Yaya MEJIA, Blaine ([id number]) on 07/31/2019 8:51:34 AM
== END 2019-07-29 05:50 | disposition expired | DRG 438 ==
LOC: SUPCPDRO → ED 14:49 → 1N 21:27 → SUATTDRO 21:27 → 2N 07-26 08:38
PROVIDERS: ATTEND Internal Medicine